=== PATIENT | female | born 1930 | race Caucasian/White ===

== ENCOUNTER 2017-02-28 14:46 | Emergency (ER) | payer OTHER, MEDICARE ==
[~2017-02-28] VITALS: Ht 152.4 cm; Wt 88.9 kg
[~2017-02-28 14:46] MED LIST: ARIMIDEX1 M1 PO; CALCIUM 500 +1 EAC5 PO; KEFLEX500 M1 PO; LASIX20 M1 PO; OXYCODONE HCL5 MG PO; TYLENOL TAB 32325 MG PO; VITAMIN D1000 UNIT PO
--- NOTE | 2017-02-28 17:25 | ED UPPER/LOWER EXTREMITY COMPL ---
History of Present Illness General Chief Complaint: Lower Extremity Problems Stated Complaint: LFT KNEE PAIN RADIATING TO HIP Source: patient Exam Limitations: no limitations Allergies Coded Allergies: NO KNOWN ALLERGIES (10/29/12) Reconcile Medications Anastrozole (Arimidex) 1 MG TABLET 1 TAB PO DAILY CANCER (Reported) Calcium Carbonate/Vitamin D3 (Calcium 500 + D Tablet) 1 EACH TABLET 1 TAB PO QAM SUPPLEMENT (Reported) Cholecalciferol (Vitamin D3) (Vitamin D) 1,000 UNIT TABLET 1 TAB PO DAILY SUPPLEMENT (Reported) Oxycodone HCl 5 MG TABLET 1 TAB PO Q8H PRN PAIN (Reported) Triage Note: PT TO ED FOR L BACK, HIP AND KNEE PAIN FOR TWO DAYS, KNOWN BONE METS (METASTATIC BREAST CA) TO R HIP AND "ITS A LOT ON THE RIGHT SIDE". Triage Nurses Notes Reviewed? yes HPI: This patient is an 87-year-old female with a past medical history including breast cancer with bony metastasis who presented to the emergency department today for evaluation left lower back, hip, and knee pain. The patient reported that several days. She was taking a sheet off of her white couch to shake it out and bent down and felt the pain in her left lower back. She describes it as a, "gripping," pain. She reported that sometimes she feels the pain in her hip and thigh, and sent him she feels the pain in her knee. She denied any falls or trauma to the area. She denied any abdominal pain, just difficulty breathing.no urinary burning, urgency, frequency, or blood in the urine. She denied any saddle paresthesia or bowel/bladder incontinence. (MOON BAUTISTA,ELÍAS) Vital Signs & Intake/Output Vital Signs & Intake/Output Vital Signs Date Time Temp Pulse Resp B/P B/P Pulse O2 O2 Flow FiO2 Mean Ox Delivery Rate 02/28 1801 97.8 96 18 164/75 90 Room Air 02/28 1541 98.0 69 18 145/75 95 Room Air ED Intake and Output 03/01 0000 02/28 1200 Intake Total 60 Output Total Balance 60 Intake, Oral 60 Patient 196 lb Weight Weight Reported by Patient Measurement Method Past History Travel History Traveled to [place] past 21 day No Medical History Any Pertinent Medical History? 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 Hx Contributory? No (ELÍAS MUSTAFA PA-C) Review of Systems Review of Systems Constitutional: Reports: no symptoms. EENTM: Reports: no symptoms. Respiratory: Reports: no symptoms. Cardiovascular: Reports: no symptoms. Gastrointestinal/Abdominal: Reports: no symptoms. Musculoskeletal: Reports: see HPI. Skin: Reports: no symptoms. Neurological/Psychological: Reports: no symptoms. All Other Systems: Reviewed and Negative (ELÍAS MUSTAFA PA-C) Physical Exam Physical Exam General Appearance: well developed/nourished, no apparent distress, alert, awake Comments: Well-developed well-nourished person in no acute distress HEENT: Normal EENT exam, head normocephalic, moist mucous membranes Pupils equally round and reactive to light. Neck: Supple, no lymphadenopathy Back: Antalgic gait. Left-sided lumbar paraspinal musculature tenderness. No midline tenderness Cardiovascular: Regular rate and rhythm with no murmurs Respiratory: Chest nontender. No respiratory distress. Seaking in full sentences Left lower extremity: No effusions or overlying erythema or ecchymosis to the joint spaces. Full range of motion the ankle, knee, and hip. No tenderness to palpation over the bony prominences and musculature. Dorsalis pedis and posterior tibialis pulses 2+ and strong. Capillary refill less than 2 seconds Neuro: Alert oriented x3, motor sensory normal, cranial nerves II through XII grossly intact. Skin: No appreciable rash on exposed skin, skin is warm and dry. Psych: Mood and affect is normal, memory and judgment is normal. (ELÍAS MUSTAFA PA-C) Progress Differential Diagnosis: arterial insufficiency, cellulitis, CHF, compartment syndrome, contusion, dislocation, DVT, fracture, gout, septic arthritis, sprain, tendon injury Plan of Care: Current Medications Sig/Maxi Start time Last Medication Dose Stop Time Status Admin Oxycodone/ 1 TAB ONCE ONE 02/28 1730 AC Acetaminophen 02/28 173 (Percocet) Diagnostic Imaging: Viewed by Me: Radiology Read. Discussed w/RAD: Radiology Read. Radiology Impression: PATIENT: OLVIN MONDRAGON PRESENT AGE: 87 PATIENT ACCOUNT NO: [id number] : [birth year] LOCATION: [facility] ORDERING PHYSICIAN: ENRIKE HERNANDEZ MD SERVICE DATE: 02/28/17 EXAM TYPE: RAD - XRY- HIP 2-3 VIEWS, LEFT; XRY-KNEE, LEFT EXAMINATION: XR LEFT KNEE XR PELVIS AND LEFT HIP CLINICAL INFORMATION: Right lower extremity pain. Known osseous metastases. COMPARISON: Nuclear medicine bone scan 08/18/2016. TECHNIQUE: Two views of the left hip. AP, lateral and oblique views of the left knee, 4 views in total. 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 No visible fracture or dislocation of the left knee. No visible cortical destruction involving the left knee and no significant suprapatellar knee joint effusion. Pelvis: A large cortical defect along the superior aspect of the right iliac bone with peripheral sclerosis, corresponding to the patient's known large osseous metastasis of the right iliac. No new pelvic fractures are noted. There are moderate to severe degenerative changes involving the right hip joint. The bilateral sacroiliac joints and pubic symphysis appear to be grossly intact. Left hip: Mild degenerative changes involving the left hip. No visible cortical lucencies or cortical destruction. No acute fracture or dislocation of the left hip. IMPRESSION: 1. 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 Otherwise, no appreciable fracture or dislocation of the left knee. No cortical destruction or focal lucencies. However, please note that cross-sectional imaging would be more sensitive in evaluating for underlying metastasis within this region. 2. 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 No visible new cortical destruction or periosteal reaction. Mild degenerative changes of the left hip joint without visible fracture or dislocation. No visible sclerotic or lytic lesions within the left hip. However, as noted above, cross-sectional imaging such as a noncontrast CT or a nuclear medicine bone scan would be more sensitive in evaluating for underlying metastasis. DICTATED BY: EMELY MCNEIL MD DATE/TIME DICTATED:02/28/171701 WALLPAPER HANGER HELPER:KAPIL DATE/TIME TRANSCRIBED:1701 CONFIDENTIAL, DO NOT COPY WITHOUT APPROPRIATE AUTHORIZATION. < Electronically signed in Other Vendor System> SIGNED BY: EMELY MCNEIL MD 02/28/17 7103 (ELÍAS MUSTAFA PA-C) Departure Departure Disposition: HOME OR SELF CARE Condition: Stable Clinical Impression Primary Impression: Arthritis pain Referrals: VARINDER MILES MD (PCP/Family) HUMBERTO STANLEY,ALETHEA Emery Additional Instructions: Please follow-up with your orthopedist or with the orthopedist's information has been provided to you in this packet. Return to the emergency department for any worsening symptoms or concerns. Departure Forms: Customer Survey General Discharge Information (ELÍAS MUSTAFA PA-C) PA/STERILIZATION SPECIALIST Co-Sign Statement Statement: ED Attending supervision documentation- X I saw and evaluated the patient. I have also reviewed all the pertinent lab results and diagnostic results. I agree with the findings and the plan of care as documented in the PA's/STERILIZATION SPECIALIST's documentation. [] I have reviewed the ED Record and agree with the PA's/STERILIZATION SPECIALIST's documentation. [] Additions or exceptions (if any) to the PAs/STERILIZATION SPECIALIST's note and plan are summarized below: [] (DAVID STANLEY,ENRIKE)
[2017-02-28] MEDS ORDERED: OXYCODONE HCL5 M1 PO (17:42)
[2017-02-28 18:01] VITALS: BP 164/75
== END 2017-02-28 20:11 ==
LOC: ERH 14:46
DX: M25.562 Pain in left knee (principal); M54.5 Low back pain; M25.552 Pain in left hip
CPT/HCPCS: 73502-LT; 73560-LT

== ENCOUNTER 2017-03-12 09:36 | Inpatient (IN) | payer OTHER, MEDICARE ==
[~2017-03-12] VITALS: Ht 152.4 cm; Wt 92.1 kg
[~2017-03-12 09:36] MED LIST changes: +OXYCODONE HCL5 M1 PO
--- NOTE | 2017-03-12 10:15 | ED DYSPNEA/ASTHMA COMPLAINT ---
History of Present Illness General Chief Complaint: Dyspnea (COPD, CHF, Other) Stated Complaint: WEAKNESS,NAUSEAS,SOB Source: patient Exam Limitations: no limitations Vital Signs & Intake/Output Vital Signs & Intake/Output ED Intake and Output 03/17 0000 03/16 1200 Intake Total 480 250 Output Total Balance 480 250 Intake, IV 0 Intake, Oral 480 250 Number 0 Bowel Movements Allergies Coded Allergies: NO KNOWN ALLERGIES (10/29/12) Reconcile Medications Amlodipine (Norvasc) 2.5 MG TABLET 1 TAB PO DAILY Hypertension Anastrozole (Arimidex) 1 MG TABLET 1 TAB PO DAILY CANCER (Reported) Apixaban (Eliquis) 5 MG TABLET 1 TAB PO BID afib Calcium Carbonate/Vitamin D3 (Calcium 500 + D Tablet) 1 EACH TABLET 1 TAB PO QAM SUPPLEMENT (Reported) Cholecalciferol (Vitamin D3) (Vitamin D) 1,000 UNIT TABLET 1 TAB PO DAILY SUPPLEMENT (Reported) Diclofenac Sodium (Voltaren) 1 % GEL..GRAM. 1 KYLER TOP 4 TIMES/DAY PRN PAIN SCALE 1-3 (MILD) Apply to knee as needed Triage Note: C/O WEAKNESS X 3 WEEKS, WITH SOB. STATES SHE HAS SEEN A CALVIN LUNDY, HAS HAD XRAYS, B/W AND UA FOR BACK AND KEFT KNEE PAIN. HAD CORTISONE SHOT IN LEFT KNEE. PMH: METASTAIC BREAST CA (BONE) TO R HIP. ENIES CHEST PAIN. Triage Nurses Notes Reviewed? yes HPI: Patient presents for evaluation of generalized weakness nausea dizziness and shortness of breath. Symptoms began earlier today somewhat abruptly. Patient states she has also experienced some chest discomfort and occasional heart palpitations of an unclear duration. She denies any associated fever or cold symptoms but states she feels chills from time to time. Symptoms are described as severe and worsened with exertion. The patient has no specific complaints at this time. Past History Travel History Traveled to [place] past 21 day No Medical History Any Pertinent Medical History? 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 Hx Contributory? No Review of Systems Review of Systems Constitutional: Reports: no symptoms. EENTM: Reports: no symptoms. Respiratory: Reports: see HPI. Cardiovascular: Reports: see HPI. GI: Reports: see HPI. Genitourinary: Reports: no symptoms. Musculoskeletal: Reports: no symptoms. Skin: Reports: no symptoms. Neurological/Psychological: Reports: no symptoms. Hematologic/Endocrine: Reports: no symptoms. Immunologic/Allergic: Reports: no symptoms. All Other Systems: Reviewed and Negative Physical Exam Physical Exam Respiratory: see below Comments: Gen.: Well-nourished, well-developed, no acute respiratory distress. Head: Normocephalic, atraumatic. Eyes: Normal inspection bilaterally Ears: Normal inspection bilaterally Nose: Normal inspection Throat/mouth : Moist mucosa Neck: Supple, full range of motion, no goiter Heart: irregular rate and rhythm, no murmurs rubs or gallops Lungs: Clear to auscultation bilaterally with normal air entry Chest: Nontender Back: Normal range of motion Abdomen: Soft, nontender, nondistended, normal bowel sounds Extremities: Normal range of motion grossly, equal radial pulses, no cyanosis, 1 + pretibial pitting edema Neurologic: Cranial nerves grossly intact, speech is clear Skin: warm and dry Psychiatric: Calm, cooperative, no apparent delusions or hallucinations Core Measures ACS in differential dx? No Severe Sepsis Present: No Septic Shock Present: No Progress Differential Diagnosis: asthma, AMI, bronchitis, CHF, COPD, unstable angina Plan of Care: Orders Procedure Date/time Status Admit to inpatient 03/12 1222 Active Patient Data 03/12 1222 Active Continuous Observation Monitor 03/12 1200 Active THYROID STIMULATING HORMONE 03/12 1015 Complete TROPONIN LEVEL 03/12 1015 Complete MAGNESIUM 03/12 1015 Complete CBC WITHOUT DIFFERENTIAL 03/12 1015 Complete BASIC METABOLIC PANEL 03/12 1015 Complete EKG 03/12 0938 Active Current Medications Sig/Maxi Start time Last Medication Dose Stop Time Status Admin Heparin Sodium 25,000 UNIT Q24H 03/12 1215 UNVr (Porcine) (Heparin) Sodium Chloride 500 ML Laboratory Tests 03/12/17 1015: Anion Gap 11, Estimated GFR 47 L, BUN/Creatinine Ratio 20.9, Glucose 205 H, Calcium 9.2, Magnesium 1.7, Troponin I 0.28 *H, TSH 3.140, CBC w Diff NO MAN DIFF REQ, RBC 4.33, MCV 90.6, MCH 31.1 H, RDW 13.6, MPV 10.2, Gran % 74.6, Lymphocytes % 14.9 L, Monocytes % 9.3, Eosinophils % 0.9, Basophils % 0.3, Absolute Granulocytes 5.3, Absolute Lymphocytes 1.1 L, Absolute Monocytes 0.7 H, Absolute Eosinophils 0.1, Absolute Basophils 0, PUBS MCHC 34.4 Diagnostic Imaging: Discussed w/RAD: Radiology Read. CXR Impression: PATIENT: OLVIN MONDRAGON PRESENT AGE: 87 PATIENT ACCOUNT NO: [id number] : [birth year] LOCATION: [facility] ORDERING PHYSICIAN: JCARLOS DAILEY MD SERVICE DATE: 03/12/17 EXAM TYPE: RAD - XRY-PORTABLE CHEST XRAY EXAMINATION: XR PORTABLE CHEST CLINICAL INFORMATION: Dyspnea COMPARISON: Chest x-ray most recent prior dated 02/13/2017 TECHNIQUE: Portable frontal view of the chest was obtained. FINDINGS: Stable cardiomegaly. Evaluation of the lung bases, left greater than right is limited due to patient' s body habitus. No definite evidence of acute airspace disease. Visualized lungs are clear. IMPRESSION: Stable cardiomegaly. No acute pulmonary disease. DICTATED BY: ALINE WELLS MD DATE/TIME DICTATED:03/12/171129 JIG HAND: KAPIL DATE/TIME TRANSCRIBED:03/12/171129 CONFIDENTIAL, DO NOT COPY WITHOUT APPROPRIATE AUTHORIZATION. <Electronically signed in Other Vendor System> SIGNED BY: ALINE WELLS MD 03/12/17 1134 Initial ED EKG: rate (104), AFIB Prior EKG: changed (nsr on prior) Comments: 03/12/2017 11:56:53 AM I have updated the patient and her family on test results. I discussed her case with Dr. Anthony who recommends aspirin, beta blockade and anticoagulation with heparin. He noted that the patient has a history of breast cancer with bone metastases and this places her at higher risk of thromboembolism. 03/12/2017 12:00:33 PM patient's nurse has brought to my attention that the patient has expressed suicide ideation. I suspect that she is anxious and feeling very overwhelmed at the diagnosis of new-onset atrial fibrillation. I have ordered a sitter. I suspect that once the patient has a chance to think about matters that her outlook will change. Departure Departure Disposition: STILL A PATIENT Condition: Stable Clinical Impression Primary Impression: New onset atrial fibrillation Secondary Impressions: Elevated troponin Referrals: VARNIDER MILES MD (PCP/Family) Departure Forms: Customer Survey General Discharge Information Prescriptions: Current Visit Scripts Apixaban (Eliquis) 1 TAB PO BID #60 TAB Diclofenac Sodium (Voltaren) 1 KYLER TOP 4 TIMES/DAY PRN PAIN SCALE 1-3 (MILD) #1 TUBE Apply to knee as needed Amlodipine (Norvasc) 1 TAB PO DAILY #30 TAB Admission Note Spoke With: APURVA STANLEY,DONNELL Documentation of Exam: Documentation of any treatments & extenuating circumstances including Concerns Regarding Discharge (functional status, medication knowledge or non-compliance, living conditions, etc.) that warrant an admission rather than observation: Patient is currently in new onset atrial fibrillation, placing her at risk of cardioembolic phenomenon such as acute stroke. The patient's atrial fibrillation in the coincident loss of atrial kick has compromised her functional capacity causing her to feel short of breath and weak overall. In addition this patient has passed disease to her hip as a result of a prior history of breast cancer. This places her at increased risk of hypercoagulability and cardial embolic phenomenon. This heightens the need for anticoagulation. Given the patient's age and medical comorbidities I feel she is a poor candidate for outpatient management at this time. She will require hospitalization on telemetry for continuous cardiac monitoring, serial troponin determinations and EKGs and cardiology consultation. Echocardiogram should be considered. Patient will need to be placed on rate controlling medications and anticoagulation to prevent any tachycardia dysrhythmias, hypotension or cardiac embolic phenomenon. This patient will require a multiple day hospitalization. Critical Care Note Critical Care Note Critical Care Time: 30-74 min
[2017-03-12 10:21] LABS: ABSOLUTE BASOPHIL COUNT 0 /CUMM (0.0-0.2); ABSOLUTE EOSINOPHIL COUNT 0.1 /CUMM (0.0-0.7); ABSOLUTE GRANULOCYTE CT 5.3 /CUMM (1.4-6.5); ABSOLUTE LYMPH COUNT 1.1 /CUMM (1.2-3.4); ABSOLUTE MONOCYTE COUNT 0.7 /CUMM (0.10-0.60); BASOPHIL % 0.3 % (0.0-2.0); EOSINOPHIL % 0.9 % (0-5); GRANULOCYTE % 74.6 % (42.2-75.2); HEMATOCRIT 39.2 % (37-47); MEAN CORPUSCULAR HGB 31.1 PG (27.0-31.0); MEAN CORPUSCULAR HGB CONC 34.4 G/DL (33.0-37.0); MEAN CORPUSCULAR VOLUME 90.6 FL (81.0-99.0); MEAN PLATELET VOLUME 10.2 FL (7.4-10.4); PLATELET COUNT 204 /CUMM (130-400); RBC DISTRIBUTION WIDTH 13.6 % (11.5-14.5); RED BLOOD CELL CT 4.33 /CUMM (4.20-5.40); WHITE BLOOD CELL COUNT 7.2 /CUMM (4.8-10.8)
--- NOTE | 2017-03-12 11:34 | RADIOLOGY REPORT ---
EXAMINATION: XR PORTABLE CHEST CLINICAL INFORMATION: Dyspnea COMPARISON: Chest x-ray most recent prior dated 02/13/2017 TECHNIQUE: Portable frontal view of the chest was obtained. FINDINGS: Stable cardiomegaly. Evaluation of the lung bases, left greater than right is limited due to patient's body habitus. No definite evidence of acute airspace disease. Visualized lungs are clear. IMPRESSION: Stable cardiomegaly. No acute pulmonary disease.
--- NOTE | 2017-03-12 12:24 | History & Physical ---
SHAYY ALVARADO 03/12/17 1224: General Information and HPI MD Statement: I have seen and personally examined OLVIN MONDRAGON and documented this H&P. The patient is a 87 year old F who presented with a patient stated chief complaint of [progressive generalized weakness, new onset atrial fibrillation]. Source of Information: patient, family, old records Exam Limitations: no limitations History of Present Illness: Mrs. Mondragon is a very pleasant 87-year-old lady with a PMH of stage I diastolic dysfunction, history of provoked bilateral DVTs ([facility] 2 years ago), left breast cancer S/P lumpectomy and radiation therapy 10 years ago with metastasis to the right hip confirmed on bone biopsy (01/08/16 - positive for metastatic adenocarcinoma) and currently on anastrozole, osteoarthritis, vitamin D deficiency who was brought in for progressive/persistent generalized weakness, exertional dyspnea and found to have new onset atrophic relation. Most recent medical history includes bronchitis in January 2016 episodes when she reports feeling run down and short of breath with minimal exertion. She followed up with her orthopedic doctor (Dr. Melo) since and had an intra- articular steroid injection in her left knee last and started on meloxicam for pain control. She also saw her PCP (Dr Miles) on Thursday this week with unremarkable workup on blood work and UA. Daughter reports noticeable worsening in her weakness, shortness of breath with minimal exertion that seems to have worsened over the past week. The patient herself endorses occasional episodes of orthopnea but denies any PND or worsening lower extremity swelling. Last night she did have one episode of nausea and nonbloody emesis with associated anxiety sensation, heavy breathing and noticeable palpitations which were new to her. She denies any fevers, chills, recent long travel or sick contacts. Allergies/Medications Allergies: Coded Allergies: NO KNOWN ALLERGIES (10/29/12) Home Med list Anastrozole (Arimidex) 1 MG TABLET 1 TAB PO DAILY CANCER (Reported) Calcium Carbonate/Vitamin D3 (Calcium 500 + D Tablet) 1 EACH TABLET 1 TAB PO QAM SUPPLEMENT (Reported) Cholecalciferol (Vitamin D3) (Vitamin D) 1,000 UNIT TABLET 1 TAB PO DAILY SUPPLEMENT (Reported) Past History Travel History Traveled to [place] past 21 day No Medical History Neurological: NONE EENT: NONE Cardiovascular: NONE Respiratory: NONE Gastrointestinal: hiatal hernia Hepatic: NONE Renal: NONE Musculoskeletal: PELVIS BONE CANCER Psychiatric: depression, 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 Psychosocial History ETOH Use: denies use Review of Systems Review of Systems Constitutional: Reports: see HPI. Cardiovascular: Reports: see HPI. Respiratory: Reports: see HPI. GI: Reports: see HPI. Genitourinary: Reports: no symptoms. Musculoskeletal: Reports: see HPI. Exam & Diagnostic Data Last 24 Hrs of Vital Signs/I&O Vital Signs Date Time Temp Pulse Resp B/P B/P Pulse O2 O2 Flow FiO2 Mean Ox Delivery Rate 03/12 1352 98.1 102 18 172/87 97 Room Air 03/12 1300 98.2 100 18 111/64 03/12 1144 98.2 100 18 111/64 94 Room Air 03/12 1023 97 03/12 1017 97.4 94 18 140/66 93 Room Air Intake & Output 03/12 1600 03/12 0800 03/12 0000 Intake Total 0 Output Total Balance 0 Intake, Oral 0 Patient 203 lb Weight Weight Reported by Patient Measurement Method Physical Exam General Appearance Alert, Cooperative, No Acute Distress Skin No Breakdown HEENT EOMI, Mucous Membr. moist/pink Cardiovascular Normal S1, Normal S2, Irregularlly irreuglar rhythm Lungs Normal Air Movement, Diminished breath soudns in the basilar regions BL Abdomen Normal Bowel Sounds, Soft, No Tenderness Extremities Normal Pulses, 2+ pitting edema BL LE Vascular Pulses Symmetrical Last 24 Hrs of Labs/Darvin: Laboratory Tests 03/12/17 1015: Anion Gap 11, Estimated GFR 47 L, BUN/Creatinine Ratio 20.9, Glucose 205 H, Hemoglobin A1c 7.1 H, Calcium 9.2, Magnesium 1.7, Troponin I 0.28 *H, Pro-B- Natriuretic Pept 2380 H, TSH 3.140, PT 11.6, INR 1.11, APTT 29, CBC w Diff NO MAN DIFF REQ, RBC 4.33, MCV 90.6, MCH 31.1 H, RDW 13.6, MPV 10.2, Gran % 74.6, Lymphocytes % 14.9 L, Monocytes % 9.3, Eosinophils % 0.9, Basophils % 0.3, Absolute Granulocytes 5.3, Absolute Lymphocytes 1.1 L, Absolute Monocytes 0.7 H, Absolute Eosinophils 0.1, Absolute Basophils 0, PUBS MCHC 34.4 Diagnostic Data EKG Results Atrial fibrillation, HR 104. Nonspecific T abnormalities, lateral leads. QTC 453 CXR Results Stable cardiomegaly. No acute pulmonary disease. Assessment/Plan Assessment: 87-year-old lady with a PMH of stage I diastolic dysfunction, history of provoked bilateral DVTs ([facility] 2 years ago), left breast cancer S/P lumpectomy and radiation therapy 10 years ago with metastasis to the right hip confirmed on bone biopsy (01/08/16 - positive for metastatic adenocarcinoma) and currently on anastrozole, osteoarthritis and vitamin D deficiency who was brought in for progressive/persistent generalized weakness, exertional dyspnea and found to be in atrial fibrillation. Recent medical history includes an episode of bronchitis in January 2016 since 1 she reports persistent shortness of breath with minimal exertion. Patient followed up with her orthopedic doctor (Dr. Melo) last and had an intra-articular steroid injection in her left knee and started on meloxicam for pain control. ROS: One episode of nausea and nonbloody emesis last night, anxious feeling, heavy breathing, palpitations. VS on admission: BP 140/66, HR 99, RR 18, SPO2 93% on RA, T 97.4 Pertinent labs on admission: WBC 7.2, H&H 13.5/39.2, weight is 204, sodium 141, potassium 4.1, chloride 108, bicarbonate 23, urine/CR 23/1.1, glucose 205 Troponin: 0.28 ProBNP: 2380 Problem list: 1. New onset atrial fibrillation 2. Elevated troponins 3. Elevated d-dimer 4. History of breast cancer 5. 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 History of 6 cm mass to right kidney 7. History of bilateral DVT 8. Osteoarthritis 9. Vitamin D deficiency Plan: * Admit to telemetry for continuous cardiac monitoring in setting of new onset atrial fibrillation. Started patient on heparin drip * Elevated troponins: Unclear at this time if this was due to a preceding ischemic event or secondary to type II in the setting of A. fib with RVR. Repeat EKG and troponin at 1600, 2200 hrs. * Rate control: With elevation in troponins would be inclined to start her on Lopressor 12.5 mg PO BID and titrate according to blood pressure and heart rate. However we'll discuss with cardiology on alternatively control with Cardizem drip * Cardiology input appreciated * Echocardiogram (10/31/2012): Stage I diastolic dysfunction, mild to moderate concentric LVH, LVEF > 65%, stage I diastolic dysfunction. Will obtain an echocardiogram to assess for wall motion abnormality/valvular pathology * D-dimer. With history of bilateral DVT and current malignancy, will obtain ultrasound bilateral lower extremities and possible follow-up chest CTA to rule out PE * We'll assess lipid profile and hemoglobin A1c * Omeprazole 20 mg daily for possible NSAID induced dyspepsia * Ramelteon 8 mg QHS for sleep * PT evaluation in the a.m. * Heart healthy diet * Heparin drip for DVT prophylaxis * DNR/DNI As Ranked By This Provider Problem List: 1. New onset atrial fibrillation 2. Elevated troponin 3. Elevated d-dimer 4. History of breast cancer 5. Metastatic breast cancer 6. History of DVT (deep vein thrombosis) Core Measures/Miscellaneous Acute Coronary Syndrome ACS Diagnosis: No Cerebrovascular Accident CVA/TIA Diagnosis: No Congestive Heart Failure CHF Diagnosis: No Venous Thromboembolism VTE Risk Factors: Age > 40, Cancer/chemo/oth therapy No Mech VTE prophylaxis d/t: No contraindications No VTE Pharm Prophylaxis d/t: No contraindications VTE Diagnosis: No VTE Type: NONE VTE Confirmed by (Test): DUPLEX VENOUS EXTREM UNI Severe Sepsis Severe Sepsis Present: No Septic Shock Septic Shock Present: No Miscellaneous Documentation Attending Case Discussed With: DONNELL MIXON MD Primary Care Physician: FREDI MILES MDTHA Patient sees these Specialists Dr. Anthony (cardiology) Dr. Muhammad (hematology/oncology) Level of Patient Care: Telemetry Resident Review Statement Resident Statement: examined this patient, discussed with public relations intern, agreed with public relations intern, discussed with family, reviewed EMR data (avail), discussed with case mgmt DONNELL MIXON MD 03/12/17 1816: Attending Review Statement Attending Statement Attending MD Statement: examined this patient, discuss w/resident/PA/BAG GRADER, agreed w/resident/PA/BAG GRADER, reviewed EMR data (avail), discussed with nursing, reviewed images, amended to note Attending Assessment/Plan: 87 y/o F with pmh sig for stage I diastolic dysfunction, history of provoked bilateral DVTs ([facility] 2 years ago), left breast cancer S/P lumpectomy and radiation therapy 10 years ago with metastasis to the right hip confirmed on bone biopsy (01/08/16 - positive for metastatic adenocarcinoma) and currently on anastrozole, osteoarthritis, vitamin D deficiency who presented with generalized fatigue, weakness and having some exertional dyspnea. Patient was sick with acute bronchitis about a month ago and since then she never recovered with her shortness of breath. She had also visited recently Dr. Melo from orthopedic secondary to having some pain in her left hip, back and knee. She was given steroid injection in the left knee and was started on Loxitane. She claims that that medicine did not agree with her and she has been feeling that her stomach is upset. She is feels no energy in her body. She currently denies any chest pain, palpitations. Vital Signs Date Time Temp Pulse Resp B/P B/P Pulse O2 O2 Flow FiO2 Mean Ox Delivery Rate 03/12 1654 97.3 59 16 156/101 94 Room Air 03/12 1545 99.2 82 16 165/67 95 Room Air 03/12 1352 98.1 102 18 172/87 97 Room Air 03/12 1300 98.2 100 18 111/64 03/12 1144 98.2 100 18 111/64 94 Room Air 03/12 1023 97 03/12 1017 97.4 94 18 140/66 93 Room Air on exam; aox3, nad cv; s1,s2, irregular. resp; decreased bs at bases. abd; soft, nt, bs+ ext; trace edema. back. + lipoma on left upper back. Laboratory Tests 03/12 03/12 1640 1015 Chemistry Sodium (137 - 145 mmol/L) 141 Potassium (3.5 - 5.1 mmol/L) 4.1 Chloride (98 - 107 mmol/L) 108 H Carbon Dioxide (22 - 30 mmol/L) 23 Anion Gap (5 - 16) 11 BUN (7 - 17 mg/dL) 23 H Creatinine (0.5 - 1.0 mg/dL) 1.1 H Estimated GFR (>60 ml/min) 47 L BUN/Creatinine Ratio (7 - 25 %) 20.9 Glucose (65 - 99 mg/dL) 205 H Hemoglobin A1c (4.2 - 5.8 %) 7.1 H Calcium (8.4 - 10.2 mg/dL) 9.2 Phosphorus (2.5 - 4.5 mg/dL) 3.8 Magnesium (1.6 - 2.3 mg/dL) 1.7 Troponin I (< 0.11 ng/ml) Pending 0.28 *H Qfe-L-Haweasamzyj Pept (<125 pg/mL) 2380 H TSH (0.270 - 4.200 uIU/mL) 3.140 Coagulation PT (9.4 - 12.5 SEC) 11.6 INR (0.90 - 1.19) 1.11 APTT (25 - 37 SEC) 29 D-Dimer (70 - 232 ng/ml) 3366 H Hematology CBC w Diff NO MAN DIFF REQ WBC (4.8 - 10.8 /CUMM) 7.2 RBC (4.20 - 5.40 /CUMM) 4.33 Hgb (12.0 - 16.0 G/DL) 13.5 Hct (37 - 47 %) 39.2 MCV (81.0 - 99.0 FL) 90.6 MCH (27.0 - 31.0 PG) 31.1 H RDW (11.5 - 14.5 %) 13.6 Plt Count (130 - 400 /CUMM) 204 MPV (7.4 - 10.4 FL) 10.2 Gran % (42.2 - 75.2 %) 74.6 Lymphocytes % (20.5 - 51.1 %) 14.9 L Monocytes % (1.7 - 9.3 %) 9.3 Eosinophils % (0 - 5 %) 0.9 Basophils % (0.0 - 2.0 %) 0.3 Absolute Granulocytes (1.4 - 6.5 /CUMM) 5.3 Absolute Lymphocytes (1.2 - 3.4 /CUMM) 1.1 L Absolute Monocytes (0.10 - 0.60 /CUMM) 0.7 H Absolute Eosinophils (0.0 - 0.7 /CUMM) 0.1 Absolute Basophils (0.0 - 0.2 /CUMM) 0 PUBS MCHC (33.0 - 37.0 G/DL) 34.4 EKG>>> Afib. A/P; 87 y/o F with pmh sig for stage I diastolic dysfunction, history of provoked bilateral DVTs ([facility] 2 years ago), left breast cancer S/P lumpectomy and radiation therapy 10 years ago with metastasis to the right hip confirmed on bone biopsy (01/08/16 - positive for metastatic adenocarcinoma) and currently on anastrozole, osteoarthritis, vitamin D deficiency is admitted with generalized fatigue and found be in new onset atrial fibrillation. Patient be admitted to telemetry. Heart rate is running in 90s 200s. Patient received beta roly in the emergency room. She also has a positive troponin therefore would recommend continuing the low-dose beta roly. She needs echocardiogram. Her lower extremity DVT ultrasound negative and she does have a high d-dimer but she had a history of very high d-dimer in the past. Her creatinine is slightly on the high side therefore we will encourage oral hydration and if her creatinine improves by tomorrow, will proceed with chest CTA to rule out pulmonary embolism. Thyroid function test including TSH was checked and it was normal. Patient has been started on full dose and coagulation is recommended by cardiology. Please notify her oncologist about patient's admission here. DVT prophylaxis: Heparin drip. Patient CODE STATUS is DNR/DNI
[2017-03-12 14:25] LABS: PT 11.6 SEC (9.4-12.5); PTT 29 SEC (25-37)
--- NOTE | 2017-03-12 15:59 | Cons- Cardiology ---
General Information and HPI Consulting Request Date of Consult: 03/12/17 Requested By: DONNELL MIXON MD Reason for Consult: New onset atrial fibrillation and positive troponin I. Source of Information: patient, family, old records Exam Limitations: poor historian History of Present Illness: Mrs. Daniella Mackenzie is an 87-year-old female with a history of obesity, mild to moderate concentric left ventricular hypertrophy, stage I diastolic dysfunction by echocardiography (10/31/2012), left breast carcinoma, s/p lumpectomy/radiation therapy at [facility] around 2011, with recurrence/ metastases discovered 2016, provoked bilateral deep venous thrombosis, renal cell carcinoma, and osteoarthritis who presented from home with complaints of weakness, lethargy, exertional shortness of breath, dizziness, nausea, and vomiting. In the ED she was found to be in atrial fibrillation with a slightly rapid ventricular response and some nondiagnostic high lateral T-wave abnormalities. She denies any history of coronary, valvular, dysrhythmic/conduction disease, or cardiomyopathy in the past. Her last echocardiogram was performed here on 10/31/2014 and revealed a normal size left ventricle with mild to moderate concentric left ventricular hypertrophy with normal left ventricular wall motion and contractility with an estimated EF of > 65%, grossly normal right ventricular size, normal size right and left atria, some age-related valvular changes, minimal pericardial effusion, and a normal size aortic root. The Doppler portion of the study revealed evidence of trace mitral, trace tricuspid, and trace pulmonic regurgitation, no evidence of pulmonary hypertension with an estimated PA systolic pressure of 29 mmHg, and stage I diastolic dysfunction. Allergies/Medications Allergies: Coded Allergies: NO KNOWN ALLERGIES (10/29/12) Home Med List: Anastrozole (Arimidex) 1 MG TABLET 1 TAB PO DAILY CANCER (Reported) Calcium Carbonate/Vitamin D3 (Calcium 500 + D Tablet) 1 EACH TABLET 1 TAB PO QAM SUPPLEMENT (Reported) Cholecalciferol (Vitamin D3) (Vitamin D) 1,000 UNIT TABLET 1 TAB PO DAILY SUPPLEMENT (Reported) Review of Systems Review of Systems: A 14 point system review was obtained and was noncontributory, other than for the fact the patient wears glasses. 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 Psychosocial History ETOH Use: denies use Exam & Diagnostic Data Vital Signs and I&O Vital Signs Date Time Temp Pulse Resp B/P B/P Pulse O2 O2 Flow FiO2 Mean Ox Delivery Rate 03/12 1352 98.1 102 18 172/87 97 Room Air 03/12 1300 98.2 100 18 111/64 03/12 1144 98.2 100 18 111/64 94 Room Air 03/12 1023 97 03/12 1017 97.4 94 18 140/66 93 Room Air Intake & Output 03/12 1600 03/12 0800 03/12 0000 03/11 1600 03/11 0800 03/11 0000 Intake Total 0 Output Total Balance 0 Intake, Oral 0 Patient 203 lb Weight Weight Reported by Patient Measurement Method Physical Exam: Well developed, obese elderly female in no acute distress with nasal oxygen in place. Vital signs: See above. HEENT: Normocephalic, atraumatic, EOMI, slightly dry mucous membranes. Neck: No JVD, no bruits. Lungs: Clear to auscultation bilaterally. Heart: S1, S2 with soft (grade 1/6) systolic murmur. No gallop or rub appreciated. PMI fifth ICS at MCL. Abdomen: Soft, nontender, positive bowel sounds. Extremities: No edema. Labs/Darvin Results: Laboratory Tests 03/12 1015 Chemistry Sodium (137 - 145 mmol/L) 141 Potassium (3.5 - 5.1 mmol/L) 4.1 Chloride (98 - 107 mmol/L) 108 H Carbon Dioxide (22 - 30 mmol/L) 23 Anion Gap (5 - 16) 11 BUN (7 - 17 mg/dL) 23 H Creatinine (0.5 - 1.0 mg/dL) 1.1 H Estimated GFR (>60 ml/min) 47 L BUN/Creatinine Ratio (7 - 25 %) 20.9 Glucose (65 - 99 mg/dL) 205 H Hemoglobin A1c (4.2 - 5.8 %) 7.1 H Calcium (8.4 - 10.2 mg/dL) 9.2 Phosphorus (2.5 - 4.5 mg/dL) Pending Magnesium (1.6 - 2.3 mg/dL) 1.7 Troponin I (< 0.11 ng/ml) 0.28 *H Xpg-A-Louobpvtezw Pept (<125 pg/mL) 2380 H TSH (0.270 - 4.200 uIU/mL) 3.140 Coagulation PT (9.4 - 12.5 SEC) 11.6 INR (0.90 - 1.19) 1.11 APTT (25 - 37 SEC) 29 D-Dimer (70 - 232 ng/ml) Pending Hematology CBC w Diff NO MAN DIFF REQ WBC (4.8 - 10.8 /CUMM) 7.2 RBC (4.20 - 5.40 /CUMM) 4.33 Hgb (12.0 - 16.0 G/DL) 13.5 Hct (37 - 47 %) 39.2 MCV (81.0 - 99.0 FL) 90.6 MCH (27.0 - 31.0 PG) 31.1 H RDW (11.5 - 14.5 %) 13.6 Plt Count (130 - 400 /CUMM) 204 MPV (7.4 - 10.4 FL) 10.2 Gran % (42.2 - 75.2 %) 74.6 Lymphocytes % (20.5 - 51.1 %) 14.9 L Monocytes % (1.7 - 9.3 %) 9.3 Eosinophils % (0 - 5 %) 0.9 Basophils % (0.0 - 2.0 %) 0.3 Absolute Granulocytes (1.4 - 6.5 /CUMM) 5.3 Absolute Lymphocytes (1.2 - 3.4 /CUMM) 1.1 L Absolute Monocytes (0.10 - 0.60 /CUMM) 0.7 H Absolute Eosinophils (0.0 - 0.7 /CUMM) 0.1 Absolute Basophils (0.0 - 0.2 /CUMM) 0 PUBS MCHC (33.0 - 37.0 G/DL) 34.4 Diagnostic Data EKG Results (03/12/2017): Atrial fibrillation with a slightly rapid ventricular response and nondiagnostic high lateral T-wave abnormalities. Faster rate and more T-wave abnormalities when compared to previous tracing (10/29/2012). CXR Results (03/12/2017): Stable cardiomegaly. No acute cardiopulmonary disease. Assessment/Plan Assessment/Plan "New onset" atrial fibrillation and worsening shortness of breath in this elderly female with a history of metastatic breast carcinoma, s/p lumpectomy/radiation therapy, previous suspicion for renal cell carcinoma, and previous provoked DVTs for which she was on transient anticoagulation therapy with warfarin. Do not think that the modest troponin I elevation is on the basis of an acute coronary syndrome, but rather secondary to demand ischemia from the tachycardia, left ventricular hypertrophy, etc., as well as, the atrial fibrillation. However, it could also be secondary to deep venous thrombosis with pulmonary embolism. Recommendations: * Telemetry admission, follow-up troponins, follow-up electrocardiograms. * Low-dose IV diltiazem drip to optimize control of the ventricular response to her atrial fibrillation. Once this is achieved switch to oral diltiazem. * Continue IV heparin and switch over to NOAC for the long-term given her atrial fibrillation and metastatic carcinoma. * Echocardiogram to reassess left ventricular size/systolic function, degree of LVH, RV size and function, atrial size, estimated PA systolic pressure, etc. * Alert hematology/oncology to Mrs. Mackenzie's admission. * Check free T4, TSH, glycosylated hemoglobin A1c, magnesium, etc. * Assess for DVT/pulmonary embolism. * DVT prophylaxis being addressed by the anticoagulation for her new atrial fibrillation. Further recommendations will follow, Thank you. Consult Acknowledgment - Thank you for your consult request.
--- NOTE | 2017-03-12 16:39 | ULTRASOUND REPORT ---
EXAMINATION: US TRIPLEX OF LOWER EXTREMITIES, BILATERAL CLINICAL INFORMATION: Bilateral lower extremity edema and pain. COMPARISON: None TECHNIQUE: Color-flow triplex imaging with spectral analysis and compression Doppler were performed on the lower extremities. FINDINGS: Respiratory variation, normal compression and augmented flow are noted throughout the lower extremities. The visualized common femoral vein, superficial femoral vein, profunda femoral vein, popliteal vein and midcalf peroneal and posterior tibial venous segments show no evidence of deep venous thrombosis. There is no Hamilton's cyst. IMPRESSION: Normal triplex scan without evidence of deep venous thrombosis involving the bilateral lower extremities.
[2017-03-12 20:55] LABS: PTT 79 SEC (25-37)
[2017-03-12 23:40] VITALS: BP 142/80
[2017-03-13 07:46] LABS: ABSOLUTE BASOPHIL COUNT 0 /CUMM (0.0-0.2); ABSOLUTE EOSINOPHIL COUNT 0.1 /CUMM (0.0-0.7); ABSOLUTE GRANULOCYTE CT 3.7 /CUMM (1.4-6.5); ABSOLUTE LYMPH COUNT 1.3 /CUMM (1.2-3.4); ABSOLUTE MONOCYTE COUNT 0.7 /CUMM (0.10-0.60); BASOPHIL % 0.3 % (0.0-2.0); EOSINOPHIL % 2.2 % (0-5); GRANULOCYTE % 63.6 % (42.2-75.2); HEMATOCRIT 37.2 % (37-47); MEAN CORPUSCULAR HGB 30.7 PG (27.0-31.0); MEAN CORPUSCULAR HGB CONC 33.6 G/DL (33.0-37.0); MEAN CORPUSCULAR VOLUME 91.4 FL (81.0-99.0); MEAN PLATELET VOLUME 10.6 FL (7.4-10.4); PLATELET COUNT 168 /CUMM (130-400); RBC DISTRIBUTION WIDTH 13.4 % (11.5-14.5); RED BLOOD CELL CT 4.07 /CUMM (4.20-5.40); WHITE BLOOD CELL COUNT 5.8 /CUMM (4.8-10.8)
--- NOTE | 2017-03-13 07:58 | PN- Housestaff ---
SHAYY ALVARADO 03/13/17 0757: Subjective Follow-up For: New onset atrial fibrillation Elevated troponins Elevated d-dimer History of breast cancer with metastasis to right hip Depressed affect Complaints: no complaints Tele-Events Since Last Visit: Atrial fibrillation/flutter: HR 88 through 100 bpm Subjective: Interval history: There were no acute events overnight. This morning Mr. Mackenzie states that she was able to sleep through the night. She does report feeling tired at the moment. However she denies any recurrence of palpitations, dizziness any new headaches, chest pain, shortness of breath, nausea, abdominal pain, fevers or chills. Review of Systems Constitutional: Reports: see HPI. EENTM: Reports: no symptoms. Cardiovascular: Reports: see HPI. Respiratory: Reports: see HPI. Gastrointestinal: Reports: no symptoms. Musculoskeletal: Reports: see HPI. Objective Last 24 Hrs of Vital Signs/I&O Vital Signs Date Time Temp Pulse Resp B/P B/P Pulse O2 O2 Flow FiO2 Mean Ox Delivery Rate 03/13 0800 98.7 78 20 120/60 94 Room Air 03/12 2340 98.9 72 18 142/80 93 Room Air 03/12 2025 Room Air 03/12 1654 97.3 59 16 156/101 94 Room Air Intake & Output 03/13 1600 03/13 0800 03/13 0000 Intake Total 448 360 Output Total 150 120 Balance 298 240 Intake, IV 208 Intake, Oral 240 360 Output, Urine 150 120 Patient 203 lb Weight Weight Reported by Patient Measurement Method Physical Exam General Appearance: Alert, Cooperative, No Acute Distress Skin: No Significant Lesion HEENT: Mucous Membr. moist/pink Cardiovascular: Normal S1, Normal S2, irregularly irregular rhythm Lungs: Normal Air Movement, diminished breath sounds in the bibasilar regions Abdomen: Normal Bowel Sounds, Soft, No Tenderness Extremities: Normal Pulses, 1+ pitting edema bilateral lower extremities Vascular: Pulses Symmetrical Current Medications: Current Medications Sig/Maxi Start time Last Medication Dose Route Stop Time Status Admin Acetaminophen 650 MG Q6P PRN 03/12 1415 AC PO Anastrozole 1 MG DAILY 03/13 1000 AC 03/13 PO 1058 Cholecalciferol 1,000 IU DAILY 03/13 1000 AC 03/13 PO 1059 Diclofenac Sodium 1 KYLER 4 TIMES/DAY PRN 03/13 1315 AC TOP Diclofenac Sodium 1 KYLER BID PRN 03/13 1015 DC TOP Diclofenac Sodium 1 KYLER ONCE ONE 03/13 0415 CAN TOP 03/13 0416 Heparin Sodium 25,000 UNIT Q24H 03/12 1215 AC 03/12 (Porcine) IV 1300 Sodium Chloride 500 ML Magnesium Oxide 400 MG ONE ONE 03/13 0945 DC 03/13 PO 03/13 0946 1058 Omeprazole 20 MG DAILY AC 03/12 1515 AC 03/13 PO 0524 Oxycodone/ 1 TAB Q6P PRN 03/12 1415 AC 03/13 Acetaminophen PO 0149 Oxycodone/ 2 TAB Q6P PRN 03/12 1415 AC Acetaminophen PO Ramelteon 8 MG AT BEDTIME PRN 03/12 1515 AC PO Last 24 Hrs of Lab/Darvin Results Last 24 Hrs of Labs/Mics: Laboratory Tests 03/13/17 0810: APTT 79 H 03/13/17 0630: Anion Gap 7, Estimated GFR 52 L, BUN/Creatinine Ratio 23.0, Phosphorus 3.6, Magnesium 1.7, Triglycerides 133, Cholesterol 194, LDL Cholesterol, Calc 128, HDL Cholesterol 40, Cholesterol/HDL Ratio 5 H, CBC w Diff NO MAN DIFF REQ, RBC 4.07 L, MCV 91.4, MCH 30.7, RDW 13.4, MPV 10.6 H, Gran % 63.6, Lymphocytes % 22.0, Monocytes % 11.9 H, Eosinophils % 2.2, Basophils % 0.3, Absolute Granulocytes 3.7, Absolute Lymphocytes 1.3, Absolute Monocytes 0.7 H, Absolute Eosinophils 0.1, Absolute Basophils 0, PUBS MCHC 33.6 03/12/17 2205: Troponin I 0.19 *H 03/12/17 1940: APTT 79 H 03/12/17 1640: Troponin I 0.27 *H Assessment/Plan Assessment: 87-year-old lady with a PMH of stage I diastolic dysfunction, history of provoked bilateral DVTs ([facility] 2 years ago), left breast cancer S/P lumpectomy and radiation therapy 10 years ago with metastasis to the right hip confirmed on bone biopsy (01/08/16 - positive for metastatic adenocarcinoma) and currently on anastrozole, osteoarthritis and vitamin D deficiency who was brought in for progressive/persistent generalized weakness, exertional dyspnea and found to be in atrial fibrillation. Recent medical history includes an episode of bronchitis in January 2016 since 1 she reports persistent shortness of breath with minimal exertion. Patient followed up with her orthopedic doctor (Dr. Melo) last and had an intra-articular steroid injection in her left knee and started on meloxicam for pain control. Problem list: 1. New onset atrial fibrillation 2. Elevated troponins 3. Elevated d-dimer 4. 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 History of 6 cm mass to right kidney 6. Depressed Affect 7. History of bilateral DVT 8. Osteoarthritis 9. Vitamin D deficiency Plan: 1. New onset atrial fibrillation * Heart rate overnight has been between 88 and 100 bpm * SBP between 111 and 165mmHg * We'll plan to transition to oral anticoagulation (Eliquis) * Since admission she required only 1 dose of Lopressor 12.5 mg for rate control * Echocardiogram: Moderate concentric LVH, on for tract velocity 1.7 m/s, LVEF 65%, moderate pulmonary hypertension RVSP 51 mmHg * 2. Elevated troponins likely type II * Serial troponins: 0.28, 0.27, 0.19 * Likely secondary A. fib versus LVH versus tachycardia * Resolved at this time 3. Elevated d-dimer * Doppler bilateral lower extremities negative for DVT, chest CTA negative for pulmonary emboli 4. 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 Hoover 5. Depressed affect * Patient was noted to have suicidal comments while in the emergency room * Psychiatry input appreciated. Recommendations at this time: She was evaluated and denied any suicidal ideation or intent, declined follow-up psychiatric interventions but open to seeing psychiatry while inpatient. Patient was assessed not to be a threat to self or others however quite demoralized. Recommend outpatient follow-up 6. History of 6 cm mass to right kidney * Stable at this time 7. History of bilateral DVT * Stable at this time 8. Osteoarthritis * Stable at this time Heart healthy diet DVT prophylaxis heparin drip DNR/DNI Problem List: 1. New onset atrial fibrillation 2. Elevated troponin 3. Elevated d-dimer 4. History of breast cancer 5. Metastatic breast cancer 6. History of DVT (deep vein thrombosis) Pain Ratin Pain Location: NA Pain Goal: Pain 4 or less Pain Plan: Volteran gel Tomorrow's Labs & Rationales: CBC: on heprain BEP: s/p contrast DVT/Prophylaxis: pharmacological Discharge Plan Discharge Disposition: home Stable for Discharge? No Anticipated Discharge (Day): tomorrow If Discharged Today/In 24 Hrs: enter antc discharge ord, DC summary done, CMR done APURVA STANLEY,DONNELL 03/13/17 1312: Attending Review Statement Attending Statement Attending MD Statement: examined this patient, discuss w/resident/PA/MEDICAL LAB ASSISTANT, agreed w/resident/PA/MEDICAL LAB ASSISTANT, reviewed EMR data (avail), discussed with nursing, discussed with case mgmt, reviewed images, amended to note Attending Assessment/Plan: Patient seen and examined, feeling overall better. Currently denies any shortness of breath and feeling more energetic. Heart rate well controlled and patient remains in A. fib. Vital Signs Date Time Temp Pulse Resp B/P B/P Pulse O2 O2 Flow FiO2 Mean Ox Delivery Rate 03/13 0800 98.7 78 20 120/60 94 Room Air 03/12 2340 98.9 72 18 142/80 93 Room Air 03/12 2025 Room Air 03/12 1654 97.3 59 16 156/101 94 Room Air 03/12 1545 99.2 82 16 165/67 95 Room Air 03/12 1352 98.1 102 18 172/87 97 Room Air on exam; aox3, nad. cv; s1,s2, irregular. resp; clear abd; soft, nt, bs+ ext; trace edema. Laboratory Tests 03/13 03/13 03/12 03/12 0810 0630 2205 1940 Chemistry Sodium (137 - 145 mmol/L) 141 Potassium (3.5 - 5.1 mmol/L) 4.1 Chloride (98 - 107 mmol/L) 107 Carbon Dioxide (22 - 30 mmol/L) 26 Anion Gap (5 - 16) 7 BUN (7 - 17 mg/dL) 23 H Creatinine (0.5 - 1.0 mg/dL) 1.0 Estimated GFR (>60 ml/min) 52 L BUN/Creatinine Ratio (7 - 25 %) 23.0 Phosphorus (2.5 - 4.5 mg/dL) 3.6 Magnesium (1.6 - 2.3 mg/dL) 1.7 Troponin I (< 0.11 ng/ml) 0.19 *H Triglycerides (<150 mg/dL) 133 Cholesterol (<200 MG/DL) 194 LDL Cholesterol, Calc (65 - 129 mg/dL) 128 HDL Cholesterol (40 - 60 mg/dL) 40 Cholesterol/HDL Ratio (0.00 - 4.23 %) 5 H Coagulation APTT (25 - 37 SEC) 79 H 79 H Hematology CBC w Diff NO MAN DIFF REQ WBC (4.8 - 10.8 /CUMM) 5.8 RBC (4.20 - 5.40 /CUMM) 4.07 L Hgb (12.0 - 16.0 G/DL) 12.5 Hct (37 - 47 %) 37.2 MCV (81.0 - 99.0 FL) 91.4 MCH (27.0 - 31.0 PG) 30.7 RDW (11.5 - 14.5 %) 13.4 Plt Count (130 - 400 /CUMM) 168 MPV (7.4 - 10.4 FL) 10.6 H Gran % (42.2 - 75.2 %) 63.6 Lymphocytes % (20.5 - 51.1 %) 22.0 Monocytes % (1.7 - 9.3 %) 11.9 H Eosinophils % (0 - 5 %) 2.2 Basophils % (0.0 - 2.0 %) 0.3 Absolute Granulocytes (1.4 - 6.5 /CUMM) 3.7 Absolute Lymphocytes (1.2 - 3.4 /CUMM) 1.3 Absolute Monocytes (0.10 - 0.60 /CUMM) 0.7 H Absolute Eosinophils (0.0 - 0.7 /CUMM) 0.1 Absolute Basophils (0.0 - 0.2 /CUMM) 0 PUBS MCHC (33.0 - 37.0 G/DL) 33.6 05/18 1640 Chemistry Troponin I (< 0.11 ng/ml) 0.27 *H A/P; 87 y/o F with pmh sig for stage I diastolic dysfunction, history of provoked bilateral DVTs ([facility] 2 years ago), left breast cancer S/P lumpectomy and radiation therapy 10 years ago with metastasis to the right hip confirmed on bone biopsy (01/08/16 - positive for metastatic adenocarcinoma) and currently on anastrozole, osteoarthritis, vitamin D deficiency is admitted with generalized fatigue and found be in new onset atrial fibrillation and also had positive troponins. Troponins were trended down. Patient had high d-dimer, lower extremity DVT ultrasound was negative. Patient undergoing chest CT today to rule out PE. We'll follow-up on the results. Echo results reviewed. Has good ejection fraction and left ventricle concentric hypertrophy. At this point her rate is well controlled without any medications. She still on IV heparin. We will follow-up on the CTA results and depending on that we can switch her to oral antiplatelet medication with one of the normal anticoagulants. Please discuss with cardiology about possibly switching the patient on liquids. Please obtain PT evaluation.
--- NOTE | 2017-03-13 07:59 | Discharge Summary ---
Visit Information Visit Dates Admission Date: 03/12/17 Discharge Date: 03/16/2017 Hospital Course Course Attending Physician: APURVA STANLEY,DONNELL Primary Care Physician: JD STANLEY,[facility] Hospital Course: 87-year-old lady with a PMH of stage I diastolic dysfunction, history of provoked bilateral DVTs ([facility] 2 years ago), left breast cancer S/P lumpectomy and radiation therapy 10 years ago with metastasis to the right hip confirmed on bone biopsy (01/08/16 - positive for metastatic adenocarcinoma) and currently on anastrozole, osteoarthritis and vitamin D deficiency who was brought in for progressive/persistent generalized weakness, exertional dyspnea and found to be in atrial fibrillation. Recent medical history includes an episode of bronchitis in January 2016 since 1 she reports persistent shortness of breath with minimal exertion. Patient followed up with her orthopedic doctor (Dr. Melo) last and had an intra-articular steroid injection in her left knee and started on meloxicam for pain control. ROS: One episode of nausea and nonbloody emesis last night, anxious feeling, heavy breathing, palpitations. VS on admission: BP 140/66, HR 99, RR 18, SPO2 93% on RA, T 97.4 Pertinent labs on admission: WBC 7.2, H&H 13.5/39.2, weight is 204, sodium 141, potassium 4.1, chloride 108, bicarbonate 23, urine/CR 23/1.1, glucose 205 Troponin: 0.28 ProBNP: 2380 The patient was admitted to telemetry for management of the following problems: 1. New onset atrial fibrillation 2. Elevated troponins 3. Elevated d-dimer 4. 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 History of 6 cm mass to right kidney 6. Depressed Affect 7. History of bilateral DVT 8. Osteoarthritis 9. Vitamin D deficiency Hospital course: 1. New onset atrial fibrillation * On admission A. fib with RVR. She received 1 dose of Lopressor 12.5 mg for rate control. 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 We'll plan to discharge on anticoagulation and follow-up with cardiology 2. Elevated troponins likely type II * Serial troponins: 0.28, 0.27, 0.19. No evidence of ST-T wave changes. This was deemed likely secondary to A. fib with RVR vs LVH 3. Elevated d-dimer * D-dimer elevated at 3366 on admission. With her history of malignancy and previous DVT obtained lower extremity Dopplers which was negative for DVT and follow-up chest CTA was well negative for PE 4. Elevated blood pressure/hypertension * Hospital day #2 blood pressure started to increase SBP 160-180 * Out of concern for underlying conduction disease restarted the patient on a loading 2.5 mg daily instead of a beta roly. Plan to follow-up with PCP within 1-2 weeks after discharge and titrate up accordingly 5. History of breast cancer with Metastatic ductal type carcinoma to right hip * Continued with anastrozole 6. Depressed affect * Patient was noted to have made suicidal comments while in the emergency room * She was evaluated by our psychiatrist and denied any suicidal ideation or intent, declined follow-up psychiatric interventions but open to seeing psychiatry while inpatient. Patient was assessed not to be a threat to self or others however quite demoralized. Recommend outpatient follow-up 7. History of 6 cm mass to right kidney * Stable at this time 8. History of bilateral DVT * Stable at this time 9. Osteoarthritis * Stable at this time. 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 Follow-up with rock crusher operator 1-2 weeks after discharge Medications at Discharge Discharge Medications: Continue taking these medications: Anastrozole (Arimidex) 1 MG TABLET 1 Tablet ORAL DAILY Cholecalciferol (Vitamin D3) (Vitamin D) 1,000 UNIT TABLET 1 Tablet ORAL DAILY Calcium Carbonate/Vitamin D3 (Calcium 500 + D Tablet) 1 EACH TABLET 1 Tablet ORAL Every Morning Comments: PER PT DAUGHTER Start taking the following new medications: Diclofenac Sodium (Voltaren) 1 % GEL..GRAM. 1 Application On the skin 4 TIMES A DAY as needed for PAIN SCALE 1-3 (MILD) Qty = 1 No Refills Instructions: Apply to knee as needed Amlodipine (Norvasc) 2.5 MG TABLET 1 Tablet ORAL DAILY Qty = 30 No Refills Apixaban (Eliquis) 5 MG TABLET 1 Tablet ORAL TWICE DAILY Qty = 60 No Refills Copies To: JOSSELIN SALINAS APRN; JOSSY STANLEY,MAYRA Hinojosa; JD STANLEY,VARINDER
[2017-03-13 08:00] VITALS: BP 120/60
[2017-03-13 09:31] LABS: PTT 79 SEC (25-37)
--- NOTE | 2017-03-13 12:58 | ECHOCARDIOGRAM REPORT ---
OLVIN MONDRAGON Age: 87 : 1930 Gender: F Exam Date: 03/12/2017 18:56 Exam Location: 1 [place] Ht (in): 60 Wt (lb): 203 BSA: 2.03 BP: 172 / 87 Ordering Physician: SHAYY ALVARADO MD Referring Physician: Ruddy Anthony MD Technologist: Catherine Maria [facility] Room Number: [id number] Indications: AFIB/FLUTTER Rhythm: Atrial fibrillation Technical Quality: Fair FINDINGS Left Ventricle Normal size left ventricle. Moderate concentric left ventricular hypertrophy. No obvious regional wall motion abnormalities. Normal left ventricular ejection fraction visually estimated at 65%. Mildly increased left ventricular outflow tract velocity (1.7 m/s). Right Ventricle Normal right ventricular size and function. Right Atrium Mild right atrial dilatation. Left Atrium Mild to moderate left atrial dilatation. Mitral Valve Moderate mitral annular calcification. Mitral valve thickened. Mild mitral regurgitation. Mild mitral stenosis. Aortic Valve Diffuse thickening of the aortic valve cusps with reduced excursion. [id number] aortic stenosis. Mild aortic regurgitation. Tricuspid Valve Structurally normal tricuspid valve. Mild tricuspid regurgitation. Moderate pulmonary hypertension. Right ventricular systolic pressure estimated to be elevated at 51 mmHg. Pulmonic Valve Pulmonic valve not well visualized. No pulmonic regurgitation. Pericardium No pericardial effusion. Great Vessels Normal size aortic root. Mildly dilated ascending aorta. Dilated inferior vena cava. CONCLUSIONS Normal size left ventricle. Moderate concentric left ventricular hypertrophy. Normal left ventricular ejection fraction visually estimated at 65%. Mildly increased left ventricular outflow tract velocity (1.7 m/s). Normal right ventricular size and function. Mild right atrial dilatation. Mild to moderate left atrial dilatation. Mild mitral regurgitation. Mild mitral stenosis. [id number] aortic stenosis. Mild aortic regurgitation. Mild tricuspid regurgitation. Moderate pulmonary hypertension. Mildly dilated ascending aorta. Dilated inferior vena cava. Ruddy Anthony M.D. (Electronically Signed) Final Date: 13 Mar 2017 12:57 MEASUREMENTS (Male / Female) Normal Values 2D ECHO LV Diastolic Diameter PLAX 3.4 cm 4.2 - 5.9 / 3.9 - 5.3 cm LV Systolic Diameter PLAX 2.2 cm 2.1 - 4.0 cm LV Fractional Shortening PLAX 35.3 % 25 - 46 % LV Ejection Fraction 2D Teich 65.8 % IVS Diastolic Thickness 1.6 cm LVPW Diastolic Thickness 1.6 cm LV Relative Wall Thickness 0.9 RV Internal Dim ED PLAX 2.4 cm 1.9 - 3.8 cm LVOT Diameter 1.8 cm Aortic Root Diameter 3.0 cm LA Systolic Diameter LX 4.1 cm 3.0 - 4.0 / 2.7 - 3.8 cm LA Volume 60.0 cm 18 - 58 / 22 - 52 cm Ascending Aorta Diameter 3.8 cm DOPPLER AV Peak Velocity 258.0 cm/s AV Peak Gradient 26.6 mmHg AV Mean Velocity 172.0 cm/s AV Mean Gradient 14.0 mmHg AV Velocity Time Integral 49.2 cm LVOT Peak Velocity 167.0 cm/s LVOT Peak Gradient 11.2 mmHg LVOT Mean Velocity 118.0 cm/s LVOT Mean Gradient 7.0 mmHg LVOT Velocity Time Integral 26.6 cm LVOT Stroke Volume 67.7 cm AV Area Cont Eq vti 1.4 cm AV Area Cont Eq pk 1.6 cm MV Peak Velocity 163.0 cm/s MV Peak Gradient 10.6 mmHg MV Mean Velocity 87.8 cm/s MV Mean Gradient 4.0 mmHg Mitral E Point Velocity 158.0 cm/s MV PHT Velocity 166.0 cm/s MV Deceleration [facility] 652.0 cm/s MV Pressure Half Time 76.4 ms MV Area PHT 2.9 cm MV Deceleration Time 174.0 ms TR Peak Velocity 339.0 cm/s TR Peak Gradient 46.0 mmHg Right Atrial Pressure 5.0 mmHg Pulmonary Artery Systolic Pressu 51.0 mmHg Right Ventricular Systolic Press 51.0 mmHg PV Peak Velocity 142.0 cm/s PV Peak Gradient 8.1 mmHg PV Mean Velocity 88.5 cm/s PV Mean Gradient 4.0 mmHg PV Velocity Time Integral 27.0 cm LV E' Lateral Velocity 7.8 cm/s Mitral E to LV E' Lateral Ratio 20.3 LV E' Septal Velocity 5.3 cm/s Mitral E to LV E' Septal Ratio 30.0
--- NOTE | 2017-03-13 13:08 | Cons- Psychiatry ---
Psychiatric Consult Date of Consult: 03/13/17 Reason for Consult: "Suicidal ideation" Ordered by Dr. Link Attending Dr. Hinkle History of Present Illness: Identifying Info: 87-year-old female presents [facility] emergency department on 03/12/2017 with chief complaint of weakness nausea dizziness and shortness of breath. Transfered to medicine. CC: "I asked God why but he doesn't answer me" HPI: Patient reports a history of low mood starting in the year 2007 with the of her . This continued and with the of her son at age 52 due to cancer in 2009 her depression became progressively worse. Throughout this period the patient's physical health began to decline. Stated that she didn't see a doctor from age 35 to age 75 because she was healthy and she didn't need to. Her health issues have been quite demoralizing. On arrival to the emergency department yesterday the patient made several concerning comments to nursing staff regarding the desire to . She did not express plan or intention to kill herself at that time. She stated "I don't really care if I'm alive or not just get a gun and shoot me just want to be with my mother right now." PMH: Please see the H&P for a complete listing Stage I diastolic dysfunction, history of provoked bilateral DVTs ([facility] 2 years ago), left breast cancer S/P lumpectomy and radiation therapy 10 years ago with metastasis to the right hip confirmed on bone biopsy (01/08/16 - positive for metastatic adenocarcinoma) and currently on anastrozole, osteoarthritis, vitamin D deficiency who was brought in for progressive/ persistent generalized weakness, exertional dyspnea Past Psych History: -Outpatient No chaplain at present "So many psychiatrists over the years" does not recall names -Inpatient [facility] date? [facility] 2013 for suicidal ideation Family Psych History: Unobtained Substance History Denies Family Substance History: Unobtained Social: Born in [place] and raised in [place]. Finished high school held a variety of jobs. Now retired. Has 2 living daughters. Abuse/Trauma: The of 2007 of son 2009. Abandoned by father as a child. Current Home Psychotropic Medications: Denies Current Hospital Psychotropic Medications: Med Ramelteon 8 MG PO AT BEDTIME PRN 03/12/17 8715 Allergies: Coded Allergies: NO KNOWN ALLERGIES (10/29/12) Current Medications: Current Medications Sig/Maxi Start time Last Medication Dose Route Stop Time Status Admin Acetaminophen 650 MG Q6P PRN 03/12 1415 AC PO Anastrozole 1 MG DAILY 03/13 1000 AC 03/13 PO 1058 Cholecalciferol 1,000 IU DAILY 03/13 1000 AC 03/13 PO 1059 Diclofenac Sodium 1 KYLER BID PRN 03/13 1015 AC TOP Diclofenac Sodium 1 KYLER ONCE ONE 03/13 0415 CAN TOP 03/13 0416 Heparin Sodium 25,000 UNIT Q24H 03/12 1215 AC 03/12 (Porcine) IV 1300 Sodium Chloride 500 ML Magnesium Oxide 400 MG ONE ONE 03/13 0945 DC 03/13 PO 03/13 0946 1058 Omeprazole 20 MG DAILY AC 03/12 1515 AC 03/13 PO 0524 Oxycodone/ 1 TAB Q6P PRN 03/12 1415 AC 03/13 Acetaminophen PO 0149 Oxycodone/ 2 TAB Q6P PRN 03/12 1415 AC Acetaminophen PO Ramelteon 8 MG AT BEDTIME PRN 03/12 1515 AC PO Past History Past Medical History Neurological: NONE EENT: NONE Cardiovascular: NONE Respiratory: NONE Gastrointestinal: hiatal hernia Hepatic: NONE Renal: NONE Musculoskeletal: osteoarthritis, PELVIS BONE CANCER Psychiatric: depression, SUCIDAL IDEATION IN PAST Endocrine: NONE Blood Disorders: DVT Cancer(s): breast cancer DISK RECORDIST/Reproductive: NONE Past Surgical History Surgical History: cholecystectomy, lumpectomy, LEFT KNEE SURGERY Psychosocial History Strengths/Capabilities: Hopeful for recovery Physical Limitations (Interventions): Multiple medical illnesses Psychiatric Treatment History Psych Treatment Psychiatric Treatment Yes (as above) Diagnosis: Unspecified depressive disorder Risk Factors: age (under 24/over 65), chronic/serious med cond., lack of outcome concern Substance Use/Abuse History Drug Use/Abuse Substances Used/Abused No Substance Abuse Treatment Substance Abuse Treatment Past Substance Abuse [place] No Assessment/Plan Mental Status Mental Status Exam: Presentation/Appearance: Cooperative with evaluation. Hospital garb. Calm. Orientation: x3 Sensorium: Awake and alert Eye contact: Appropriate Affect: Blunted Mood: Dysphoric Depression: Denies Anxiety: Denies Thought Content: - Denies SI/HI, AH/VH, PI. States and also believes they will not kill themselves. - Patient does endorse some passive SI, "it would be okay if I but I would never hurt myself" - Denies Hopeless/Helpless Thoughts Thought Process: Linear Associations: Appropriate Speech: Normal tone and rate Judgment: Intact Insight: Intact Cognition: Memory: Endorses some deficits, grossly intact on eval Attention/Concentration: Grossly intact Fund of Knowledge: Adequate Abstractions:Did not assess MMSE: Did nto assess Brief ROS Gait: Did not observe Sleep: Poor Appetite: Adequate Energy: Low IADLs/ADLs: With assist in hospital At present the patient declines psychotherapeutic, psychotropic, and pastoral care intervention. She would be open to visits from consult psychiatry while in hospital. Lab Results: Laboratory Tests 03/13/17 0810: APTT 79 H 03/13/17 0630: Anion Gap 7, Estimated GFR 52 L, BUN/Creatinine Ratio 23.0, Phosphorus 3.6, Magnesium 1.7, Triglycerides 133, Cholesterol 194, LDL Cholesterol, Calc 128, HDL Cholesterol 40, Cholesterol/HDL Ratio 5 H, CBC w Diff NO MAN DIFF REQ, RBC 4.07 L, MCV 91.4, MCH 30.7, RDW 13.4, MPV 10.6 H, Gran % 63.6, Lymphocytes % 22.0, Monocytes % 11.9 H, Eosinophils % 2.2, Basophils % 0.3, Absolute Granulocytes 3.7, Absolute Lymphocytes 1.3, Absolute Monocytes 0.7 H, Absolute Eosinophils 0.1, Absolute Basophils 0, PUBS MCHC 33.6 03/12/17 2205: Troponin I 0.19 *H 03/12/17 1940: APTT 79 H 03/12/17 1640: Troponin I 0.27 *H 03/12/17 1015: Anion Gap 11, Estimated GFR 47 L, BUN/Creatinine Ratio 20.9, Glucose 205 H, Hemoglobin A1c 7.1 H, Calcium 9.2, Phosphorus 3.8, Magnesium 1.7, Troponin I 0.28 *H, Kbh-Q-Sateifvizcy Pept 2380 H, TSH 3.140, Thyroxine (T4) 8.9, Total T3 1.28, PT 11.6, INR 1.11, APTT 29, D-Dimer 3366 H, CBC w Diff NO MAN DIFF REQ, RBC 4.33, MCV 90.6, MCH 31.1 H, RDW 13.6, MPV 10.2, Gran % 74.6, Lymphocytes % 14.9 L, Monocytes % 9.3, Eosinophils % 0.9, Basophils % 0.3, Absolute Granulocytes 5.3, Absolute Lymphocytes 1.1 L, Absolute Monocytes 0.7 H, Absolute Eosinophils 0.1, Absolute Basophils 0, PUBS MCHC 34.4 Diffential Diagnosis: Rule out depressive disorder due to another medical condition By history unspecified depressive disorder Rule out Complicated grieving Impression: 87-year-old female presents expressing suicidal ideation in the context of multiple chronic medical conditions and ongoing grief over the loss of her and son almost a decade ago. At present she denies any suicidal ideation or intent and contracts for safety. She declines follow-up psychiatric interventions but is open to seeing psychiatry while in hospital. This patient is not a threat to self or others and is not gravely disabled. She is however quite demoralized. Provisional Treatment Plan: 1. Please discontinue one-to-one sitter. 2. We will continue to encourage patient to seek psychiatric follow-up care and will facilitate this if she agrees. Thank you for including psychiatry in this case, we will continue to follow.
--- NOTE | 2017-03-13 13:41 | CT SCAN REPORT ---
EXAMINATION: CT ANGIOGRAM PULMONARY CHEST CLINICAL INFORMATION: Shortness of breath with tachycardia and atrial fibrillation. COMPARISON: Chest CT 01/22/2016 TECHNIQUE: Multiple axial images were obtained through the chest after the administration of 95 mL of Optiray 320 intravenous contrast. Images were reviewed on a dedicated 3-D workstation. DLP: 500.57 mGy-cm FINDINGS: The central and segmental pulmonary arteries are well-opacified and there is no evidence to suggest the presence of acute pulmonary emboli. The more peripheral vasculature, especially in the lower lobes, is not optimally opacified but no definitive filling defects are seen to suggest the presence of emboli here as well with some limitations. The thoracic aorta, although not well opacified is not enlarged and there is no evidence to suggest the presence of a dissection or thoracic aortic aneurysm. No suspicious lung mass is seen. There are some scattered millimeters-sized nodules. No pleural effusions are seen. The heart is enlarged. The aorta is of normal size without aneurysm and despite poor opacification there is nothing present to suggest a dissection. Some small mediastinal nodes are seen but there is no adenopathy. The chest wall is unremarkable. Visualized structures of the upper abdomen demonstrate clips in the gallbladder fossa and a left hepatic lobe cyst. There is an unchanged left adrenal mass. IMPRESSION: No convincing evidence of central or segmental pulmonary emboli.
--- NOTE | 2017-03-13 16:20 | Patient Discharge Instructions ---
Discharge Instructions General Discharge Information You were seen/treated for: New Onset atrial fibrillation Watch for these problems: Chest Pain, worsening shortness of breath, recurrence of palpitations, dizziness Special Instructions: Please take all medications as directed. Follow-up with your PCP within one week after discharge. Please follow-up with your caustic pump operator within 1-2 weeks after discharge Diet Recommended Diet: Heart Healthy Activity Activity Self Limited: Yes Acute Coronary Syndrome Inclusion Criteria At DC or during hospital stay patient has or had the following: ACS DIAGNOSIS No Discharge Core Measures Meds if any: Prescribed or Continued at Discharge Meds if any: NOT Prescribed or Continued at Discharge Congestive Heart Failure Inclusion Criteria At DC or during hospital stay patient has or had the following: CHF DIAGNOSIS No Discharge Core Measures Meds if any: Prescribed or Continued at Discharge Meds if any: NOT Prescribed or Continued at Discharge Cerebrovascular accident Inclusion Criteria At DC or during hospital stay patient has or had the following: CVA/TIA Diagnosis No Discharge Core Measures Meds if any: Prescribed or Continued at Discharge Meds if any: NOT Prescribed or Continued at Discharge Venous thromboembolism Inclusion Criteria VTE Diagnosis No VTE Type NONE VTE Confirmed by (Test) CT CHEST ANGIOGRAM Discharge Core Measures - Per Current guidelines, there needs to be overlap - treatment for the first 5 days of Warfarin therapy. - If discharged on Warfarin prior to 5 days of - overlap therapy, the patient will need to be - assessed for post discharge needs including - *Post discharge parental anticoagulation - *Warfarin and/or parental anticoagulation education - *Follow up date to check INR post discharge At least 5 days overlap therapy as Inpatient No Meds if any: Prescribed or Continued at Discharge Note: Overlap Therapy is Warfarin and Anticoagulant Meds if any: NOT Prescribed or Continued at Discharge
[2017-03-13] MEDS ORDERED: ELIQUIS5 M1 PO (16:24)
[2017-03-13] MEDS ORDERED: VOLTAREN100 GM TOP (16:51)
[2017-03-13 17:20] VITALS: BP 132/59
[2017-03-13 20:53] LABS: PTT 83 SEC (25-37)
[2017-03-13 22:45] VITALS: BP 112/74
--- NOTE | 2017-03-14 07:05 | PN- Housestaff ---
See Addendum Subjective Follow-up For: New onset atrial fibrillation Elevated troponins Elevated d-dimer History of breast cancer with metastasis to right hip Depressed affect Complaints: Difficulty sleeping Feeling weak Tele-Events Since Last Visit: A. glenis, PVCs, HR 79-114 bpm Subjective: Interval history: This morning Mrs. Mackenzie states that she feels weak and not quite ready to be discharged home. She states she is still having a hard time with shortness of breath with minimal exertion. She denies any recurrence of chest pain, persistent nausea, abdominal pain, fevers or chills at this time. Review of Systems Constitutional: Reports: see HPI. EENTM: Reports: no symptoms. Cardiovascular: Reports: see HPI. Respiratory: Reports: see HPI. Gastrointestinal: Reports: no symptoms. Musculoskeletal: Reports: see HPI. Objective Last 24 Hrs of Vital Signs/I&O Vital Signs Date Time Temp Pulse Resp B/P B/P Pulse O2 O2 Flow FiO2 Mean Ox Delivery Rate 03/14 0818 98.3 85 18 104/80 93 Room Air 03/14 0000 Room Air 03/13 2245 98.1 90 22 112/74 96 Room Air 03/13 1720 98.4 68 18 132/59 90 Room Air Intake & Output 03/14 1600 03/14 0800 03/14 0000 Intake Total 100 470 Output Total Balance 100 470 Intake, IV 0 120 Intake, Oral 100 350 Number 0 0 Bowel Movements Physical Exam General Appearance: Alert, Cooperative, Sad affect HEENT: Mucous Membr. moist/pink Cardiovascular: Normal S1, Normal S2, Irregular rhythm Lungs: Normal Air Movement, Diminished breath sounds in the basilar region bilaterally. Inspiratory stridor present Abdomen: Normal Bowel Sounds, Soft, No Tenderness Extremities: Normal Pulses, 1+ PITING EDEMA BL LE Vascular: Pulses Symmetrical Current Medications: Current Medications Sig/Maxi Start time Last Medication Dose Route Stop Time Status Admin Acetaminophen 650 MG Q6P PRN 03/12 1415 AC PO Anastrozole 1 MG DAILY 03/13 1000 AC 03/13 PO 1058 Apixaban 5 MG BID 03/13 2200 AC 03/13 PO 2116 Cholecalciferol 1,000 IU DAILY 03/13 1000 AC 03/13 PO 1059 Diclofenac Sodium 1 KYLER 4 TIMES/DAY PRN 03/13 1315 AC TOP Diclofenac Sodium 1 KYLER BID PRN 03/13 1015 DC TOP Heparin Sodium 25,000 UNIT Q24H 03/12 1215 DC 03/13 (Porcine) IV 03/13 2200 1554 Sodium Chloride 500 ML Magnesium Oxide 400 MG ONE ONE 03/13 0945 DC 03/13 PO 03/13 0946 1058 Omeprazole 20 MG DAILY AC 03/12 1515 AC 03/13 PO 0524 Oxycodone/ 1 TAB Q6P PRN 03/12 1415 AC 03/13 Acetaminophen PO 0149 Oxycodone/ 2 TAB Q6P PRN 03/12 1415 AC Acetaminophen PO Ramelteon 8 MG AT BEDTIME PRN 03/12 1515 AC 03/13 PO 2116 Last 24 Hrs of Lab/Darvin Results Last 24 Hrs of Labs/Mics: Laboratory Tests 03/14/17 0625: Anion Gap 8, Estimated GFR 59 L, BUN/Creatinine Ratio 21.1, CBC w Diff NO MAN DIFF REQ, RBC 4.07 L, MCV 92.4, MCH 31.2 H, RDW 13.9, MPV 11.1 H, Gran % 67.6 , Lymphocytes % 18.5 L, Monocytes % 11.6 H, Eosinophils % 2.0, Basophils % 0.3 , Absolute Granulocytes 3.7, Absolute Lymphocytes 1.0 L, Absolute Monocytes 0.6 , Absolute Eosinophils 0.1, Absolute Basophils 0, PUBS MCHC 33.7 03/13/172001: APTT 83 H Assessment/Plan Assessment: 87-year-old lady with a PMH of stage I diastolic dysfunction, history of provoked bilateral DVTs ([facility] 2 years ago), left breast cancer S/P lumpectomy and radiation therapy 10 years ago with metastasis to the right hip confirmed on bone biopsy (01/08/16 - positive for metastatic adenocarcinoma) and currently on anastrozole, osteoarthritis and vitamin D deficiency who was brought in for progressive/persistent generalized weakness, exertional dyspnea and found to be in atrial fibrillation. Recent medical history includes an episode of bronchitis in January 2016 since 1 she reports persistent shortness of breath with minimal exertion. Patient followed up with her orthopedic doctor (Dr. Melo) last and had an intra-articular steroid injection in her left knee and started on meloxicam for pain control. Problem list: 1. New onset atrial fibrillation 2. Elevated troponins 3. Elevated d-dimer 4. 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 History of 6 cm mass to right kidney 6. Depressed Affect 7. History of bilateral DVT 8. Osteoarthritis 9. Vitamin D deficiency Plan: 1. New onset atrial fibrillation * Heart rate overnight has been between 79-114 * Discontinued heparin last night and transition to (Eliquis) * Since admission she required only 1 dose of Lopressor 12.5 mg for rate control * Echocardiogram: Moderate concentric LVH, on for tract velocity 1.7 m/s, LVEF 65%, moderate pulmonary hypertension RVSP 51 mmHg * Plan to discharge the patient on Eliquis 5mg BID. We'll confirm with cardiology for need for low-dose beta roly prior to discharge. 2. Elevated troponins likely type II * Stable. Resolved * Likely secondary A. fib versus LVH versus tachycardia 3. Elevated d-dimer * Doppler bilateral lower extremities negative for DVT, chest CTA negative for pulmonary emboli 4. 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 Hoover 5. Depressed affect * Patient was noted to have suicidal comments while in the emergency room * Psychiatry input appreciated. Recommendations at this time: She was evaluated and denied any suicidal ideation or intent, declined follow-up psychiatric interventions but open to seeing psychiatry while inpatient. Patient was assessed not to be a threat to self or others however quite demoralized. Recommend outpatient follow-up 6. History of 6 cm mass to right kidney * Stable at this time 7. History of bilateral DVT * Stable at this time 8. Osteoarthritis * Stable at this time Heart healthy diet DVT prophylaxis heparin drip DNR/DNI Problem List: 1. New onset atrial fibrillation 2. Elevated troponin 3. Elevated d-dimer 4. History of breast cancer 5. Metastatic breast cancer 6. History of DVT (deep vein thrombosis) Pain Ratin Pain Location: NA Pain Goal: Pain 4 or less Pain Plan: Pain pathway, volteran gel Tomorrow's Labs & Rationales: None DVT/Prophylaxis: pharmacological Discharge Plan Discharge Disposition: home Stable for Discharge? Yes Anticipated Discharge (Day): today If Discharged Today/In 24 Hrs: enter antc discharge ord, W-10/discharge paper done, DC summary done, CMR done
[2017-03-14 08:18] VITALS: BP 104/80
[2017-03-14 08:19] LABS: ABSOLUTE BASOPHIL COUNT 0 /CUMM (0.0-0.2); ABSOLUTE EOSINOPHIL COUNT 0.1 /CUMM (0.0-0.7); ABSOLUTE GRANULOCYTE CT 3.7 /CUMM (1.4-6.5); ABSOLUTE MONOCYTE COUNT 0.6 /CUMM (0.10-0.60); BASOPHIL % 0.3 % (0.0-2.0); GRANULOCYTE % 67.6 % (42.2-75.2); HEMATOCRIT 37.6 % (37-47); MEAN CORPUSCULAR HGB 31.2 PG (27.0-31.0); MEAN CORPUSCULAR HGB CONC 33.7 G/DL (33.0-37.0); MEAN CORPUSCULAR VOLUME 92.4 FL (81.0-99.0); MEAN PLATELET VOLUME 11.1 FL (7.4-10.4); PLATELET COUNT 139 /CUMM (130-400); RBC DISTRIBUTION WIDTH 13.9 % (11.5-14.5); RED BLOOD CELL CT 4.07 /CUMM (4.20-5.40); WHITE BLOOD CELL COUNT 5.5 /CUMM (4.8-10.8)
--- NOTE | 2017-03-14 15:10 | PN- Cardiology ---
Subjective Subjective: Complains of feeling "weak". Denies any chest discomfort, palpitations, shortness of breath, lower extremity edema, etc. On telemetry, remains in atrial fibrillation with a reasonably well-controlled ventricular response. Objective Vital Signs and I&Os Vital Signs Date Time Temp Pulse Resp B/P B/P Pulse O2 O2 Flow FiO2 Mean Ox Delivery Rate 03/14 818 98.3 85 18 104/80 93 Room Air 03/14 0000 Room Air 03/13 2245 98.1 90 22 112/74 96 Room Air 03/13 1720 98.4 68 18 132/59 90 Room Air Intake & Output 03/14 1600 03/14 0800 03/14 0000 03/13 1600 03/13 0800 03/13 0000 Intake Total 100 470 760 448 360 Output Total 450 150 120 Balance 100 470 310 298 240 Intake, IV 0 120 160 208 Intake, Oral 100 350 600 240 360 Number 0 0 Bowel Movements Output, Urine 450 150 120 Patient 203 lb Weight Weight Reported by Patient Measurement Method Physical Exam: Well developed, obese elderly female in no acute distress with nasal oxygen in place. Vital signs: See above. HEENT: Normocephalic, atraumatic, EOMI, slightly dry mucous membranes. Neck: No JVD, no bruits. Lungs: Clear to auscultation bilaterally. Heart: S1, S2 with soft (grade 1/6) systolic murmur. No gallop or rub appreciated. PMI fifth ICS at MCL. Abdomen: Soft, nontender, positive bowel sounds. Extremities: No edema. Current Medications: Current Medications Sig/Maxi Start time Last Medication Dose Route Stop Time Status Admin Acetaminophen 650 MG Q6P PRN 03/12 1415 AC PO Anastrozole 1 MG DAILY 03/13 1000 AC 03/14 PO 1238 Apixaban 5 MG BID 03/13 2200 AC 03/14 PO 1238 Cholecalciferol 1,000 IU DAILY 03/13 1000 AC 03/14 PO 1238 Diclofenac Sodium 1 KYLER 4 TIMES/DAY PRN 03/13 1315 AC TOP Heparin Sodium 25,000 UNIT Q24H 03/12 1215 DC 03/13 (Porcine) IV 03/13 2200 1554 Sodium Chloride 500 ML Omeprazole 20 MG DAILY AC 03/12 1515 AC 03/13 PO 0524 Oxycodone/ 1 TAB Q6P PRN 03/12 1415 AC 03/13 Acetaminophen PO 0149 Oxycodone/ 2 TAB Q6P PRN 03/12 141 AC Acetaminophen PO Ramelteon 8 MG AT BEDTIME PRN 03/12 1515 AC 03/13 PO 2116 Results Last 48 Hrs of Labs/Mics: Laboratory Tests 03/14/17 0625: Anion Gap 8, Estimated GFR 59 L, BUN/Creatinine Ratio 21.1, CBC w Diff NO MAN DIFF REQ, RBC 4.07 L, MCV 92.4, MCH 31.2 H, RDW 13.9, MPV 11.1 H, Gran % 67.6 , Lymphocytes % 18.5 L, Monocytes % 11.6 H, Eosinophils % 2.0, Basophils % 0.3 , Absolute Granulocytes 3.7, Absolute Lymphocytes 1.0 L, Absolute Monocytes 0.6 , Absolute Eosinophils 0.1, Absolute Basophils 0, PUBS MCHC 33.7 03/13/17 2002: APTT 83 H 03/13/17 0810: APTT 79 H 03/13/17 0630: Anion Gap 7, Estimated GFR 52 L, BUN/Creatinine Ratio 23.0, Phosphorus 3.6, Magnesium 1.7, Triglycerides 133, Cholesterol 194, LDL Cholesterol, Calc 128, HDL Cholesterol 40, Cholesterol/HDL Ratio 5 H, CBC w Diff NO MAN DIFF REQ, RBC 4.07 L, MCV 91.4, MCH 30.7, RDW 13.4, MPV 10.6 H, Gran % 63.6, Lymphocytes % 22.0, Monocytes % 11.9 H, Eosinophils % 2.2, Basophils % 0.3, Absolute Granulocytes 3.7, Absolute Lymphocytes 1.3, Absolute Monocytes 0.7 H, Absolute Eosinophils 0.1, Absolute Basophils 0, PUBS MCHC 33.6 03/12/17 2205: Troponin I 0.19 *H 03/12/17 1940: APTT 79 H 03/12/17 1640: Troponin I 0.27 *H Recent Imaging Studies: CT angiogram (03/13/2017): No convincing evidence of central or segmental pulmonary emboli. Echocardiogram (03/12/2017): Normal size left ventricle. Moderate concentric left ventricular hypertrophy. Normal left ventricular ejection fraction visually estimated at 65%. Mildly increased left ventricular outflow tract velocity (1.7 m/s). Normal right ventricular size and function. Mild right atrial dilatation. Mild to moderate left atrial dilatation. Mild mitral regurgitation. Mild mitral stenosis. [id number] aortic stenosis. Mild aortic regurgitation. Mild tricuspid regurgitation. Moderate pulmonary hypertension. Mildly dilated ascending aorta. Dilated inferior vena cava. Assessment/Plan Assessment/Plan "New onset" atrial fibrillation and worsening shortness of breath in this elderly female with a history of metastatic breast carcinoma, s/p lumpectomy/radiation therapy, previous suspicion for renal cell carcinoma, and previous provoked DVTs for which she was on transient anticoagulation therapy with warfarin. Suspect that the modest troponin I elevation is not on the basis of an acute coronary syndrome, but rather secondary to demand ischemia from the tachycardia, left ventricular hypertrophy, etc., as well as, the atrial fibrillation. The ventricular response to her atrial fibrillation is reasonably well controlled and she is now anticoagulated, but she complains of feeling very weak. Recommend an assessment by physical therapy to see if she would be a candidate for short-term rehabilitation. From a cardiac standpoint we need to see what the ventricular response to her heart rate is with exertion. If this remains reasonably well-controlled would anticipate discharge their future. Continue telemetry? Yes
[2017-03-14 16:12] VITALS: BP 120/78
[2017-03-14 23:09] VITALS: BP 164/90
[2017-03-15 08:22] VITALS: BP 128/84
--- NOTE | 2017-03-15 10:19 | PN- Housestaff ---
See Addendum Subjective Follow-up For: New onset atrial fibrillation Elevated troponins Elevated d-dimer History of breast cancer with metastasis to right hip Depressed affect Tele-Events Since Last Visit: Jennifer glenis, 82-105, no overnight events Subjective: Afebrile, hemodynamically stable, saturating well on room air, no acute overnight events reported. Patient feels tired and lethargic, she couldn't sleep last night giving to be check on the telemetry monitoring device. She did not eat well Review of Systems Constitutional: Reports: see HPI. Objective Last 24 Hrs of Vital Signs/I&O Vital Signs Date Time Temp Pulse Resp B/P B/P Pulse O2 O2 Flow FiO2 Mean Ox Delivery Rate 03/15 1620 98.6 94 20 142/72 94 Room Air 03/15 0822 98.9 98 18 128/84 96 Room Air 03/14 2309 98.6 105 12 164/90 94 Room Air Intake & Output 03/15 1600 03/15 0800 03/15 0000 Intake Total 480 220 240 Output Total 350 400 Balance 480 -130 -160 Intake, Oral 480 220 240 Output, Urine 350 400 Physical Exam General Appearance: Alert, Oriented X3, Cooperative, No Acute Distress HEENT: Atraumatic, PERRLA, EOMI, Mucous Membr. moist/pink Cardiovascular: Normal S1, Normal S2, No Murmurs, irregular Lungs: decrease air entry over both lungs Abdomen: Normal Bowel Sounds, Soft, No Tenderness Neurological: Normal Speech Extremities: No Clubbing, No Cyanosis, trace edema over LE B/L Current Medications: Current Medications Sig/Maxi Start time Last Medication Dose Route Stop Time Status Admin Acetaminophen 650 MG Q6P PRN 03/12 1415 AC PO Anastrozole 1 MG DAILY 03/13 1000 AC 03/15 PO 0853 Apixaban 5 MG BID 03/13 2200 AC 03/15 PO 0853 Cholecalciferol 1,000 IU DAILY 03/13 1000 AC 03/15 PO 0853 Diclofenac Sodium 1 KYLER 4 TIMES/DAY PRN 03/13 1315 AC 03/15 TOP 1138 Omeprazole 20 MG DAILY AC 03/12 1515 AC 03/13 PO 0524 Oxycodone/ 1 TAB Q6P PRN 03/12 1415 AC 03/13 Acetaminophen PO 0149 Oxycodone/ 2 TAB Q6P PRN 03/12 1415 AC Acetaminophen PO Ramelteon 8 MG .STK-MED ONE 03/14 2331 DC PO 03/14 2332 Ramelteon 8 MG AT BEDTIME PRN 03/12 1515 AC 03/14 PO 2330 Assessment/Plan Assessment: 87-year-old lady with a PMH of stage I diastolic dysfunction, history of provoked bilateral DVTs ([facility] 2 years ago), left breast cancer S/P lumpectomy and radiation therapy 10 years ago with metastasis to the right hip confirmed on bone biopsy (01/08/16 - positive for metastatic adenocarcinoma) and currently on anastrozole, osteoarthritis and vitamin D deficiency who was brought in for progressive/persistent generalized weakness, exertional dyspnea and found to be in atrial fibrillation. Recent medical history includes an episode of bronchitis in January 2016 since 1 she reports persistent shortness of breath with minimal exertion. Patient followed up with her orthopedic doctor (Dr. Melo) last and had an intra-articular steroid injection in her left knee and started on meloxicam for pain control. Problem list: 1. New onset atrial fibrillation 2. Elevated troponins 3. Elevated d-dimer 4. 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 History of 6 cm mass to right kidney 6. Depressed Affect 7. History of bilateral DVT 8. Osteoarthritis 9. Vitamin D deficiency Plan: 1. New onset atrial fibrillation * Heart rate overnight has been between 82-105 * Continue Eliquis * Since admission she required only 1 dose of Lopressor 12.5 mg for rate control * Echocardiogram: Moderate concentric LVH, on for tract velocity 1.7 m/s, LVEF 65%, moderate pulmonary hypertension RVSP 51 mmHg * Assess the ventricular response with exertion * PT evaluation for discharge recommendation * Plan to discharge the patient on Eliquis 5mg BID. We'll confirm with cardiology for need for low-dose beta roly prior to discharge. 2. Elevated troponins likely type II * Stable. Resolved * Likely secondary A. fib versus LVH versus tachycardia 3. Elevated d-dimer * Doppler bilateral lower extremities negative for DVT, chest CTA negative for pulmonary emboli 4. 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 Hoover 5. Depressed affect * Patient was noted to have suicidal comments while in the emergency room * Psychiatry input appreciated. Recommendations at this time: She was evaluated and denied any suicidal ideation or intent, declined follow-up psychiatric interventions but open to seeing psychiatry while inpatient. Patient was assessed not to be a threat to self or others however quite demoralized. Recommend outpatient follow-up 6. History of 6 cm mass to right kidney * Stable at this time 7. History of bilateral DVT * Stable at this time 8. Osteoarthritis * Stable at this time Heart healthy diet DVT prophylaxis a liquids DNR/DNI Problem List: 1. New onset atrial fibrillation Pain Ratin Pain Location: NA Pain Goal: Remain pain free Pain Plan: See A&P Tomorrow's Labs & Rationales: BEP
[2017-03-15 16:20] VITALS: BP 142/72
--- NOTE | 2017-03-15 17:18 | PN- Cardiology ---
Subjective Subjective: Continues to complain of weakness, but denies any chest discomfort, palpitations , shortness of breath, etc. Objective Vital Signs and I&Os Vital Signs Date Time Temp Pulse Resp B/P B/P Pulse O2 O2 Flow FiO2 Mean Ox Delivery Rate 03/15 1620 98.6 94 20 142/72 94 Room Air 03/15 0822 98.9 98 18 128/84 96 Room Air 03/14 2309 98.6 105 12 164/90 94 Room Air Intake & Output 03/15 1600 03/15 0800 03/15 0000 03/14 1600 03/14 0800 03/14 0000 Intake Total 480 220 240 700 100 470 Output Total 350 400 500 Balance 480 -130 -160 200 100 470 Intake, IV 0 120 Intake, Oral 480 220 240 700 100 350 Number 1 0 0 Bowel Movements Output, Urine 350 400 500 Physical Exam: Well developed, obese elderly female in no acute distress with nasal oxygen in place. Vital signs: See above. HEENT: Normocephalic, atraumatic, EOMI, slightly dry mucous membranes. Neck: No JVD, no bruits. Lungs: Clear to auscultation bilaterally. Heart: S1, S2 with soft (grade 1/6) systolic murmur. No gallop or rub appreciated. PMI fifth ICS at [facility]. Abdomen: Soft, nontender, positive bowel sounds. Extremities: No edema. Current Medications: Current Medications Sig/Maxi Start time Last Medication Dose Route Stop Time Status Admin Acetaminophen 650 MG Q6P PRN 03/12 1415 AC PO Anastrozole 1 MG DAILY 03/13 1000 AC 03/15 PO 0853 Apixaban 5 MG BID 03/13 2200 AC 03/15 PO 0853 Cholecalciferol 1,000 IU DAILY 03/13 1000 AC 03/15 PO 0853 Diclofenac Sodium 1 KYLER 4 TIMES/DAY PRN 03/13 1315 AC 03/15 TOP 1138 Omeprazole 20 MG DAILY AC 03/12 1515 AC 03/13 PO 0524 Oxycodone/ 1 TAB Q6P PRN 03/12 1415 AC 03/13 Acetaminophen PO 0149 Oxycodone/ 2 TAB Q6P PRN 03/12 1415 AC Acetaminophen PO Ramelteon 8 MG .STK-MED ONE 03/14 2331 DC PO 03/14 2332 Ramelteon 8 MG AT BEDTIME PRN 03/12 1515 AC 03/14 PO 2330 Results Last 48 Hrs of Labs/Mics: Laboratory Tests 03/14/17 0625: Anion Gap 8, Estimated GFR 59 L, BUN/Creatinine Ratio 21.1, CBC w Diff NO MAN DIFF REQ, RBC 4.07 L, MCV 92.4, MCH 31.2 H, RDW 13.9, MPV 11.1 H, Gran % 67.6 , Lymphocytes % 18.5 L, Monocytes % 11.6 H, Eosinophils % 2.0, Basophils % 0.3 , Absolute Granulocytes 3.7, Absolute Lymphocytes 1.0 L, Absolute Monocytes 0.6 , Absolute Eosinophils 0.1, Absolute Basophils 0, PUBS MCHC 33.7 03/13/17 2002: APTT 83 H Assessment/Plan Assessment/Plan "New onset" atrial fibrillation and worsening shortness of breath in this elderly female with a history of metastatic breast carcinoma, s/p lumpectomy/radiation therapy, previous suspicion for renal cell carcinoma, and previous provoked DVTs for which she was on transient anticoagulation therapy with warfarin. Suspect that the modest troponin I elevation is not on the basis of an acute coronary syndrome, but rather secondary to demand ischemia from the tachycardia, left ventricular hypertrophy, etc., as well as, the atrial fibrillation. The ventricular response to her atrial fibrillation is reasonably well controlled and she is now anticoagulated, but she complains of feeling very weak. Recommend an assessment by physical therapy to see if she would be a candidate for short-term rehabilitation. From a cardiac standpoint we need to see what the ventricular response to her heart rate is with exertion. If this remains reasonably well-controlled would anticipate discharge in the near future. Continue telemetry? Yes
[2017-03-15 23:00] VITALS: BP 136/74
--- NOTE | 2017-03-16 06:45 | PN- Housestaff ---
SHAYY ALVARADO 03/16/17 0645: Subjective Follow-up For: New onset atrial fibrillation Elevated troponins Elevated d-dimer History of breast cancer with metastasis to right hip Depressed affect Complaints: Difficulty sleeping last night Tele-Events Since Last Visit: A fibrillation: HR 89 11/26/2003 BPM. Subjective: Interval history: Last night Mrs. Mackenzie had a hard time falling asleep. There were otherwise no acute events. She does report persistent generalized weakness but denies any recurrence of chest pain or worsening shortness of breath. Review of Systems Constitutional: Reports: see HPI. EENTM: Reports: no symptoms. Cardiovascular: Reports: no symptoms. Respiratory: Reports: see HPI. Gastrointestinal: Reports: no symptoms. Musculoskeletal: Reports: see HPI. Objective Last 24 Hrs of Vital Signs/I&O Vital Signs Date Time Temp Pulse Resp B/P B/P Pulse O2 O2 Flow FiO2 Mean Ox Delivery Rate 03/16 0903 99.4 57 17 180/67 95 Room Air 03/16 0000 Room Air 03/15 2300 97.4 94 18 136/74 96 03/15 1620 98.6 94 20 142/72 94 Room Air Intake & Output 03/16 1600 03/16 0800 03/16 0000 Intake Total 250 500 Output Total Balance 250 500 Intake, IV 0 0 Intake, Oral 250 500 Number 0 0 Bowel Movements Physical Exam General Appearance: Alert, Cooperative, No Acute Distress Skin: No Significant Lesion HEENT: Mucous Membr. moist/pink Cardiovascular: Normal S1, Normal S2, Irregularly irregular Lungs: Normal Air Movement, Diminished breath sounds in the basilar regions Abdomen: Normal Bowel Sounds, Soft, No Tenderness Extremities: Normal Pulses, 1+ pitting edema BL LE Vascular: Pulses Symmetrical Assessment/Plan Assessment: This morning I admitted her on Thursday 1 patient is very open about his being he is intermittently without 1 she use only notes how to evaluate on Thursday morning I just spoke with her this morning and he is 87-year-old lady with a PMH of stage I diastolic dysfunction, history of provoked bilateral DVTs ([facility] 2 years ago), left breast cancer S/P lumpectomy and radiation therapy 10 years ago with metastasis to the right hip confirmed on bone biopsy (01/08/16 - positive for metastatic adenocarcinoma) and currently on anastrozole, osteoarthritis and vitamin D deficiency who was brought in for progressive/ persistent generalized weakness, exertional dyspnea and found to be in atrial fibrillation. Recent medical history includes an episode of bronchitis in January 2016 since 1 she reports persistent shortness of breath with minimal exertion. Patient followed up with her orthopedic doctor (Dr. Melo) last and had an intra-articular steroid injection in her left knee and started on meloxicam for pain control. Problem list: 1. New onset atrial fibrillation 2. Elevated troponins 3. Elevated d-dimer 4. 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 History of 6 cm mass to right kidney 6. Depressed Affect 7. History of bilateral DVT 8. Osteoarthritis 9. Vitamin D deficiency Plan: 1. New onset atrial fibrillation * Heart rate overnight has been between 89-104 BPM. Continue with Eliquis and plan to discharge on current dose of 5 mg twice a day * Patient converted to normal sinus rhythm today at 12 PM. Will repeat EKG * Echocardiogram: Moderate concentric LVH, on for tract velocity 1.7 m/s, LVEF 65%, moderate pulmonary hypertension RVSP 51 mmHg * Repeat ambulation to assess for ventricular response with activity and potential need for rate control agent 2. Elevated blood pressure/hypertension * Elevation in blood pressure: BP 160/90 * We'll start the patient on amlodipine 2.5 mg daily and monitor BP and titrate dose as an outpatient 3. Elevated troponins likely type II * Stable. Resolved * Likely secondary A. fib versus LVH versus tachycardia 4. Elevated d-dimer * Doppler bilateral lower extremities negative for DVT, chest CTA negative for pulmonary emboli 5. History of breast cancer with Metastatic ductal type carcinoma to right hip * Continue with anastrozole 6. Depressed affect * Patient was noted to have suicidal comments while in the emergency room * Psychiatry input appreciated. Recommendations at this time: She was evaluated and denied any suicidal ideation or intent, declined follow-up psychiatric interventions but open to seeing psychiatry while inpatient. Patient was assessed not to be a threat to self or others however quite demoralized. Recommend outpatient follow-up 7. History of 6 cm mass to right kidney * Stable at this time 8. History of bilateral DVT * Doppler ultrasound on 03/12/17 negative for DVT 9. Osteoarthritis * Stable at this time Heart healthy diet DVT prophylaxis a liquids DNR/DNI Problem List: 1. New onset atrial fibrillation 2. Elevated d-dimer 3. History of breast cancer 4. Metastatic breast cancer 5. Depression Pain Ratin Pain Location: Left knee Pain Goal: Pain 4 or less Pain Plan: VOltaren gel Tomorrow's Labs & Rationales: NA DVT/Prophylaxis: pharmacological Consulting Request: Consulting Specialty: Cardiology Discharge Plan Discharge Disposition: home Stable for Discharge? Yes Anticipated Discharge (Day): today If Discharged Today/In 24 Hrs: enter antc discharge ord, W-10/discharge paper done, DC summary done, CMR done DONNELL MIXON MD 03/16/17 1406: Attending MD Review Statement Attending Statement Attending MD Statement: examined this patient, discuss w/resident/PA/RUBBER COVERING MACHINE OPERATOR, agreed w/resident/PA/RUBBER COVERING MACHINE OPERATOR, reviewed EMR data (avail), discussed with nursing, discussed with case mgmt, reviewed images, amended to note Attending Assessment/Plan: Patient seen and examined, feels tired. Overall her heart rate is stable. Her intake regulation was switched to Eliquis. Her blood pressure was running high this morning and we have added on low-dose amlodipine which can be uptitrated at the rehabilitation. She is otherwise medically stable for discharge and has a bed available at rehabilitation today. She will follow with her primary care doctor as well as rebar fabricator in outpatient.
[2017-03-16 09:03] VITALS: BP 180/67
[2017-03-16 11:22] VITALS: BP 160/90
[2017-03-16] MEDS ORDERED: NORVASC2.5 M1 PO (13:29)
[2017-03-16 15:37] VITALS: BP 148/80
== END 2017-03-16 16:20 | DRG 309 ==
LOC: ERH 09:36 → ERHI 12:22 → 1NO 12:22 → ENRESERV 15:04 → 1NO 17:14 → ENPENDDIS 03-16 13:31 → 1NO 03-16 16:20
PROVIDERS: Emergency Medicine; Internal Medicine; ADMIT Hospitalist
DX: I48.91 Unspecified atrial fibrillation (principal); C79.51 Secondary malignant neoplasm of bone; I24.8 Other forms of acute ischemic heart disease; I27.2 Other secondary pulmonary hypertension; I35.0 Nonrheumatic aortic (valve) stenosis; Z66 Do not resuscitate; F32.9 Major depressive disorder, single episode, unspecified; E66.9 Obesity, unspecified; Z68.39 Body mass index [BMI] 39.0-39.9, adult; E55.9 Vitamin D deficiency, unspecified; K44.9 Diaphragmatic hernia without obstruction or gangrene; Z85.3 Personal history of malignant neoplasm of breast; Z86.718 Personal history of other venous thrombosis and embolism
CPT/HCPCS: 1NP; 36415; 82436; 87086; 93005; 93010; 93306; 93970; 96374; 97110-GO; 97116-GO; 97161-GP; 97530-GO; 99291; J1644

== ENCOUNTER 2017-12-07 13:26 | Emergency (ER) | payer OTHER, MEDICARE ==
[~2017-12-07] VITALS: Ht 152.4 cm; Wt 90.7 kg
[~2017-12-07 13:26] MED LIST changes: +ELIQUIS5 M1 PO; +NORVASC2.5 M1 PO; +VOLTAREN100 GM TOP
[2017-12-07 14:39] LABS: ABSOLUTE BASOPHIL COUNT 0 /CUMM (0.0-0.2); ABSOLUTE EOSINOPHIL COUNT 0 /CUMM (0.0-0.7); ABSOLUTE GRANULOCYTE CT 7.1 /CUMM (1.4-6.5); ABSOLUTE LYMPH COUNT 0.6 /CUMM (1.2-3.4); ABSOLUTE MONOCYTE COUNT 0.2 /CUMM (0.10-0.60); BASOPHIL % 0 % (0.0-2.0); EOSINOPHIL % 0.3 % (0-5); HEMATOCRIT 42.9 % (37-47); MEAN CORPUSCULAR HGB 29.6 PG (27.0-31.0); MEAN CORPUSCULAR HGB CONC 32.9 G/DL (33.0-37.0); MEAN PLATELET VOLUME 9.9 FL (7.4-10.4); RBC DISTRIBUTION WIDTH 13.6 % (11.5-14.5); RED BLOOD CELL CT 4.77 /CUMM (4.20-5.40); WHITE BLOOD CELL COUNT 7.9 /CUMM (4.8-10.8)
[2017-12-07 14:44] LABS: PT 11.6 SEC (9.4-12.5); PTT 29 SEC (25-37)
[2017-12-07 14:56] LABS: GRANULOCYTE % 89.8 % (42.2-75.2); PLATELET COUNT 193 /CUMM (130-400)
--- NOTE | 2017-12-07 16:51 | ED GENERAL ADULT ---
History of Present Illness General Chief Complaint: General Adult Stated Complaint: N/V/D, VAGINAL BLEEDING,RECTAL BLEEDING Source: patient, family, old records Exam Limitations: no limitations Allergies Coded Allergies: NO KNOWN ALLERGIES (10/29/12) Reconcile Medications Amlodipine (Norvasc) 2.5 MG TABLET 1 TAB PO DAILY Hypertension Anastrozole (Arimidex) 1 MG TABLET 1 TAB PO DAILY CANCER (Reported) Apixaban (Eliquis) 5 MG TABLET 1 TAB PO BID afib Calcium Carbonate/Vitamin D3 (Calcium 500 + D Tablet) 1 EACH TABLET 1 TAB PO QAM SUPPLEMENT (Reported) Cholecalciferol (Vitamin D3) (Vitamin D) 1,000 UNIT TABLET 1 TAB PO DAILY SUPPLEMENT (Reported) Ciprofloxacin HCl (Cipro) 500 MG TABLET 1 TAB PO BID uti Diclofenac Sodium (Voltaren) 1 % GEL..GRAM. 1 KYLER TOP 4 TIMES/DAY PRN PAIN SCALE 1-3 (MILD) Apply to knee as needed Metronidazole (Flagyl) 500 MG TABLET 1 TAB PO BID diarrhea Ondansetron (Zofran Odt) 4 MG TAB.RAPDIS 1 TAB SL TID PRN nausea Triage Note: PT TO ED WITH C/O N/V/D SINCE YESTERDAY, NOW C/O RIGHT FLANK PAIN, PT HAS HX OF KIDNEY TUMORS, PELVIC CANCER, SEES DR SEGAL. Triage Nurses Notes Reviewed? 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 Patient describes pain as nonradiating, severe, 10/10, onset at rest lasting hours. Patient reports that pain resolved around 1 PM. Patient also complaining of nausea, vomiting, diarrhea beginning today. Patient also reports gross hematuria beginning this morning as well as blood in stool. Patient had URI in October 3 weeks, believes she was on an antibiotic during that time, unsure of which antibiotic. (Kathrine MICHEL,Sindi Pitts) Vital Signs & Intake/Output Vital Signs & Intake/Output Vital Signs Date Time Temp Pulse Resp B/P B/P Pulse O2 O2 Flow FiO2 Mean Ox Delivery Rate 12/07 2005 98.9 80 18 176/77 92 Room Air 12/07 1800 98.4 91 20 157/80 94 Room Air 12/07 1731 Room Air ED Intake and Output 12/08 0000 12/07 1200 Intake Total 0 Output Total Balance 0 Intake, Oral 0 Patient 200 lb Weight Weight Reported by Patient Measurement Method (Lalo Chavez DO) Past History Travel History Traveled to [place] past 21 day No Medical History Any Pertinent Medical History? 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 Hx Contributory? No (Sindi Jameson) Review of Systems Review of Systems Constitutional: Reports: no symptoms. EENTM: Reports: no symptoms. Respiratory: Reports: no symptoms. Cardiovascular: Reports: no symptoms. GI: Reports: see HPI. Genitourinary: Reports: see HPI. Musculoskeletal: Reports: no symptoms. Skin: Reports: no symptoms. Neurological/Psychological: Reports: no symptoms. Hematologic/Endocrine: Reports: no symptoms. Immunologic/Allergic: Reports: no symptoms. All Other Systems: Reviewed and Negative (Sindi Jameson) Physical Exam Physical Exam General Appearance: well developed/nourished, no apparent distress, alert, awake Head: atraumatic, normal appearance Eyes: Bilateral: normal appearance. Ears, Nose, Throat: hearing grossly normal Neck: normal inspection, supple, full range of motion Respiratory: normal breath sounds, no respiratory distress, lungs clear Cardiovascular: irregularly irregular Peripheral Pulses: 2+ radial (R), 2+ radial (L) Gastrointestinal: normal bowel sounds, soft, non-tender, no organomegaly Back: normal inspection, normal range of motion, no CVA tenderness Extremities: normal inspection, normal range of motion Neurologic/Psych: awake, alert, oriented x 3 Skin: intact, normal color, warm/dry Core Measures ACS in differential dx? No CVA/TIA Diagnosis: No Sepsis Present: No Sepsis Focused Exam Completed? No (Kathrine MICHEL,Sindi Pitts) Progress Differential Diagnoses I considered the following diagnoses in my evaluation of the patient: [ Pyelonephritis, kidney stone, renal mass, malignancy, bladder pathology, UTI, gastroenteritis, colitis, diverticular disease] Diagnostic Imaging: Viewed by Me: CT Scan. Discussed w/RAD: CT Scan. Radiology Impression: PATIENT: OLVIN MONDRAGON PRESENT AGE: 87 PATIENT ACCOUNT NO: [id number] : [birth year] LOCATION: [facility] ORDERING PHYSICIAN: Sindi MICHEL SERVICE DATE: 12/07/17 EXAM TYPE: CAT - CT ABD & PELVIS W/O IV CONTRAS EXAMINATION: CT ABDOMEN AND PELVIS WITHOUT CONTRAST CLINICAL INFORMATION: Right flank pain. Hematuria. COMPARISON: 2015. TECHNIQUE: Contiguous axial thin section helical images of the abdomen and pelvis were performed without oral or IV contrast. The data set was reformatted in the coronal and sagittal planes and reviewed on an independent workstation. DLP: 703 mGy-cm. FINDINGS: There is mild dependent bibasilar atelectasis. The visualized lung bases are otherwise clear. The visualized portions of the heart are stable. There is a small hiatal hernia. The liver is of normal size and attenuation without intrahepatic biliary ductal dilation. Within the inferior left lobe of the liver, there is a stable approximately 1.1 cm low-attenuation lesion. The patient is status post cholecystectomy. Surgical clips are present. The spleen, pancreas and right adrenal glands are unremarkable. There is a stable 2.1 cm fat-containing left adrenal mass. Both kidneys are of normal size and attenuation without hydronephrosis or nephrolithiasis. Again identified are bilateral renal cysts. Within the interpole region/lower pole of the right kidney, again identified is an exophytic high attenuation mass measuring approximately 6.5 cm. There is no abdominal free fluid. There is neither mesenteric nor retroperitoneal lymphadenopathy. There is a fat-containing umbilical hernia. There is sigmoid diverticulosis without evidence of diverticulitis. Otherwise, unremarkable unopacified loops of small and large bowel are identified. A normal appendix is identified. There is no pelvic free fluid. The urinary bladder is unremarkable. There is neither pelvic nor inguinal lymphadenopathy. 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 There is disc height loss at L5/S1. Again identified are extensive sclerotic and lytic changes to the right innominate bone. There is quite mild adjacent soft tissue prominence, markedly decreased from prior exam. IMPRESSION: No evidence for acute abdominal or pelvic inflammatory or infectious processes. Persistent right renal mass. Again identified is a mixed sclerotic and lytic right innominate bone lesion suspicious for a metastatic focus. Fat-containing umbilical hernia. Diverticulosis without evidence of diverticulitis. Stable low-attenuation hepatic lesion. Small hiatal hernia. DICTATED BY: Jose Elias Haq MD DATE/TIME DICTATED:12/07/171756 TUBE TEST TECHNICIAN:KAPIL DATE/TIME TRANSCRIBED:1756 CONFIDENTIAL, DO NOT COPY WITHOUT APPROPRIATE AUTHORIZATION. < Electronically signed in Other Vendor System> SIGNED BY: Jose Elias Haq MD 12/07/17 1835 Initial ED EKG: none (Kathrine MICHEL,Sindi Pitts) Plan of Care: Orders Procedure Date/time Status CULTURE,URINE 12/07 1721 Active URINALYSIS 12/07 1721 Complete Laboratory Tests 12/07/171749: Urine Color BLDY H, Urine Clarity TURBD H, Urine pH 6.5, Ur Specific [place] 1.025, Urine Protein >=300 H, Urine Ketones 15 H, Urine Nitrite POS H, Urine Bilirubin NEG@ICTO, Urine Urobilinogen 4.0 H, Ur Leukocyte Esterase MOD H, Ur Microscopic SEDIMENT EXAMINED, Urine RBC PACKD H, Micro UA Comment MORE INFO: H, Urine Hemoglobin LARGE H, Urine Glucose 100 H Microbiology 12/07 1749 URINE ROUT: Urine Culture - RES CT scan shows stable renal mass without other acute finding, no kidney stone detected. Patient's UA is packed with red blood cells, unable to assess for WBCs given packed RBCs however +estrace. Given these findings with possible bloody diarrhea we will treat with Cipro and Flagyl to cover for UTI versus bacterial diarrhea. Patient given lab slip for stool culture to obtain as an outpatient as she is unable to give stool culture here in the emergency department. Patient reports her pain has resolved, she feels ready to go home at this time, she does not wish to remain in the emergency department. Patient has no abdominal tenderness. She is in no acute distress, stable vital signs, hemodynamically stable. The patient and her family member agree with the plan of care. Discussed these findings with Dr. Stapleton will follow-up with patient in the office this week, he agrees with twice antibiotics. Dr. Chavez present to see and evaluate patient. He agrees with the plan of care. (Kathrine MICHEL,Sindi Pitts) (Scott PISANO,Lalo Polanco) Departure Departure Disposition: HOME OR SELF CARE Condition: Stable Clinical Impression Primary Impression: Hematuria Qualifiers: Hematuria type: gross Qualified Code: R31.0 - Gross hematuria Secondary Impressions: Flank pain, Nausea vomiting and diarrhea Referrals: Norman STANLEY,Avery Ham (PCP/Family) Ethan Stapleton MD Additional Instructions: Takes Zofran as prescribed as needed for nausea. Drink fluids with electrolytes tolerated. You were given a slip to bring to the lab for a stool sample. Follow-up with urologist this week as discussed. Begin antibiotics tonight, take full course of antibiotics. Return to the emergency department with any worsening symptoms or other concerns. Please go over all results of today's visit with your primary care doctor. Contact your primary care doctor to let them know you were here in the emergency room. There may be nonspecific findings which may not be related to your visit today here in the emergency room but may require further evaluation and chronic monitoring by your primary care doctor. If you had a laceration today the chance of foreign body always remains. You should follow-up with your primary care doctor for recheck in 3-5 days for a wound check. If you had an x-ray done there is a chance that a fracture could have been missed on initial read and you should follow-up with your primary care doctor for repeat x-rays if symptoms persist. If your blood pressure was elevated here in the emergency room please have rechecked by her primary care doctor within the next 48 hours by your primary care doctor. If you were prescribed a narcotic here in the emergency room or any type of controlled substances you're not allowed to drive while taking this medication or operate any type of heavy machinery. Narcotics can make you feel lightheaded dizziness nausea and can cause constipation. You may need to apple picking supervisor a stool softener. Thank you for choosing [facility] emergency room. Please return to the emergency room immediately if you have any other concerns worsening of symptoms. Departure Forms: Customer Survey General Discharge Information Prescriptions: Current Visit Scripts Ciprofloxacin HCl (Cipro) 1 TAB PO BID #9 TAB Metronidazole (Flagyl) 1 TAB PO BID #14 TAB Ondansetron (Zofran Odt) 1 TAB SL TID PRN nausea #10 TAB (Sindi Jameson) PA/PRODUCE INSPECTOR Co-Sign Statement Statement: ED Attending supervision documentation- [x] I saw and evaluated the patient. I have also reviewed all the pertinent lab results and diagnostic results. I agree with the findings and the plan of care as documented in the PA's/PRODUCE INSPECTOR's documentation. [] I have reviewed the ED Record and agree with the PA's/PRODUCE INSPECTOR's documentation. [] Additions or exceptions (if any) to the PAs/PRODUCE INSPECTOR's note and plan are summarized below: [] I've seen and personally examined the patient and I agree with the PAs evaluation. The case was discussed with Dr. Stapleton. He will see her in follow- up. She has a known renal mass and presented with gross hematuria. She's also had diarrhea. She also noted some blood in the diarrhea. She will stop taking ibuprofen. Take Cipro and Flagyl. She will follow-up with Dr. Stapleton this week. Hold Kenny. (Lalo Chavez DO) Critical Care Note Critical Care Note Critical Care Time: non-applicable (Sindi Jameson)
--- NOTE | 2017-12-07 18:35 | CT SCAN REPORT ---
EXAMINATION: CT ABDOMEN AND PELVIS WITHOUT CONTRAST CLINICAL INFORMATION: Right flank pain. Hematuria. COMPARISON: 01/22/2016. TECHNIQUE: Contiguous axial thin section helical images of the abdomen and pelvis were performed without oral or IV contrast. The data set was reformatted in the coronal and sagittal planes and reviewed on an independent workstation. DLP: 703 mGy-cm. FINDINGS: There is mild dependent bibasilar atelectasis. The visualized lung bases are otherwise clear. The visualized portions of the heart are stable. There is a small hiatal hernia. The liver is of normal size and attenuation without intrahepatic biliary ductal dilation. Within the inferior left lobe of the liver, there is a stable approximately 1.1 cm low-attenuation lesion. The patient is status post cholecystectomy. Surgical clips are present. The spleen, pancreas and right adrenal glands are unremarkable. There is a stable 2.1 cm fat-containing left adrenal mass. Both kidneys are of normal size and attenuation without hydronephrosis or nephrolithiasis. Again identified are bilateral renal cysts. Within the interpole region/lower pole of the right kidney, again identified is an exophytic high attenuation mass measuring approximately 6.5 cm. There is no abdominal free fluid. There is neither mesenteric nor retroperitoneal lymphadenopathy. There is a fat-containing umbilical hernia. There is sigmoid diverticulosis without evidence of diverticulitis. Otherwise, unremarkable unopacified loops of small and large bowel are identified. A normal appendix is identified. There is no pelvic free fluid. The urinary bladder is unremarkable. There is neither pelvic nor inguinal lymphadenopathy. 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 There is disc height loss at L5/S1. Again identified are extensive sclerotic and lytic changes to the right innominate bone. There is quite mild adjacent soft tissue prominence, markedly decreased from prior exam. IMPRESSION: No evidence for acute abdominal or pelvic inflammatory or infectious processes. Persistent right renal mass. Again identified is a mixed sclerotic and lytic right innominate bone lesion suspicious for a metastatic focus. Fat-containing umbilical hernia. Diverticulosis without evidence of diverticulitis. Stable low-attenuation hepatic lesion. Small hiatal hernia.
[2017-12-07] MEDS ORDERED: FLAGYL500 MG PO (20:04)
[2017-12-07] MEDS ORDERED: CIPRO500 M1 PO (20:04)
[2017-12-07] MEDS ORDERED: ZOFRAN ODT4 M1 SL (20:04)
[2017-12-07 20:06] VITALS: BP 176/77
== END 2017-12-07 21:53 ==
LOC: ERH 13:26
PROVIDERS: Physician Assistant Medical
DX: R31.9 Hematuria, unspecified (principal); R10.9 Unspecified abdominal pain; R11.2 Nausea with vomiting, unspecified; R19.7 Diarrhea, unspecified
CPT/HCPCS: 74176; 81001; 87086; 96374; J2405; J3101